=== PATIENT | male | born 1950 | race Caucasian/White ===

== ENCOUNTER 2018-09-18 13:18 | Emergency (ER) | payer MEDICARE, OTHER ==
[~2018-09-18] VITALS: Ht 167.6 cm; Wt 74.8 kg
[2018-09-18] MEDS ORDERED: TETANUS,DIPTH,PERTUSS P/F (BOOSTRIX) 0.5 ML VIAL IM ONE (13:30)
[2018-09-18] MEDS ORDERED: BACITRACIN OINTMENT 28 GM TUBE TOP SCH (13:45)
--- NOTE | 2018-09-18 13:47 | ED Integumentary General ---
General Chief Complaint: Bite-Animal/Human/Insect Stated Complaint: DOG BITE Source: patient Exam Limitations: no limitations History of Present Illness Date Seen by Provider: Sep 18, 2018 Time Seen by Provider: 13:35 Initial Comments The patient is a very pleasant 68-year-old male presents for evaluation of a dog bite to the right dorsal forearm. He states that a stray dog had been near his daughter's house over the last week and that they have been feeding it and that it had been chained up behind her house. He states that today he was trying to befriend the dog and he approached it, the dog started to growl at him, but he still tried to pet the dog and was then bitten. He reports that as far as anyone knows the dog has been behaving like her normal dog without any unusual behavior. He is unsure if he is up to date with his tetanus immunization status of this will be given today. I informed him that dogs can carry rabies and that since the dog is behaving normally and is currently chained up and can be observed over the next 10 days that we can forego the rabies vaccination and immunoglobulin at this time. I explained that if the dog continues to be asymptomatic that rabies treatment will not be necessary. The patient expresses verbal understanding of this plan. I also advised the patient to contact animal control for further recommendations. The police have been alerted and notified of the dog bite. The patient was wearing a longsleeved shirt at the time of the bite and states that there were no puncture wounds in the fabric and that his lacerations were caused by skin tearing. He denies any other injuries from the dog bite and specifically states that he did not hit his head or lose consciousness. The patient reports that his daughter is a registered nurse who cleaned the wound before coming to the emergency department today. Location Injury Occurred: at the patient's daughter's house Timing/Duration: just prior to arrival Severity: moderate Location: extremities Possible Cause: other (dog bite) Associated Symptoms: denies symptoms Allergies and Home Medications Allergies Uncoded Allergies: ANESTHESIA (Allergy, Unknown, 09/18/18) PENICILLIN (Allergy, Unknown, 09/18/18) FEVER Home Medications Doxycycline Hyclate 100 Mg Tablet, 100 MG PO BID Prescribed by: KADI VANN on 09/18/18 5915 Patient Home Medication List Home Medication List Reviewed: Yes Review of Systems Review of Systems Constitutional: no symptoms reported EENTM: no symptoms reported Respiratory: no symptoms reported Cardiovascular: no symptoms reported Gastrointestinal: no symptoms reported Genitourinary: no symptoms reported Musculoskeletal: no symptoms reported Skin: see HPI, other (dog bite to right forearm) Psychiatric/Neurological: No Symptoms Reported Endocrine: No Symptoms Reported Hematologic/Lymphatic: No Symptoms Reported All Other Systems Reviewed Negative Unless Noted: Yes Past Avijjdx-Etrvkd-Zptgvg Hx Past Med/Social Hx: Reviewed Nursing Past Med/Soc Hx, Reviewed and Corrections made Physical Exam Vital Signs Capillary Refill : General Appearance: WD/WN, no apparent distress HEENT: PERRL/EOMI, normal ENT inspection, pharynx normal Neck: non-tender, full range of motion Cardiovascular: regular rate, rhythm, no edema, no JVD Respiratory: chest non-tender, lungs clear, normal breath sounds, no respiratory distress, no accessory muscle use Gastrointestinal: non tender, soft, no pulsatile mass Extremities: no pedal edema, other (dog bite with 4 skin tear/lacerations to the right dorsal forearm bleeding, no damage to musculature, 3 of the wounds are very superficial, the fourth is approximately 2 cm in length with some very mild dehiscence) Neurologic/Psychiatric: beta tester II-XII nml as tested, no motor/sensory deficits, alert, normal mood/affect, oriented x 3 Skin: normal color, warm/dry Lymphatic: no adenopathy Progress/Results/Core Measures Results/Orders My Orders Orders - KADI VANN DO Dipht,Pertuss(Acell),Tet Adult (Boostrix (09/18/18 13:30) Bacitracin Ointment (Bacitracin Ointment (09/18/18 13:45) Wound Dressing-Ed (09/18/18 13:39) Nursing Communication (Order) (09/18/18 13:39) Progress Progress Note : Progress Note @1405 - Wound irrigated and cleaned by RN and Steri-Strips applied also by RN. The patient tolerated this very well. He'll go home with a prescription for doxycycline as he has an allergy to penicillin. Advised patient to follow up with his PCP in the next 2-3 days for wound check. Advised the patient to monitor the dog for 10 days for any abnormal behavior and to get the input from animal control. If the patient has any concerns at all he should return to the emergency department. His stable for discharge. Departure Impression Primary Impression: Dog bite Disposition: 01 HOME, SELF-CARE Condition: Stable Departure-Patient Inst. Referrals: NO,LOCAL PHYSICIAN (PCP/Family) Primary Care Physician Patient Instructions: Animal Bites (DC) Add. Discharge Instructions: Follow-up with her doctor in the next 2-3 days for wound check. Take the prescribed antibiotic as directed. Keep the wounds clean and dry. Return to the ER for new or worsening symptoms. Observe the dog bit that you for 10 days to monitor for abnormal behavior. Get the input from animal control if you have any questions. If the dog does exhibit signs or symptoms concerning for rabies you need to return for rabies medications. Scripts Doxycycline Hyclate (Doxycycline Hyclate) 100 Mg Tablet 100 MG PO BID for 7 Days, #20 TAB 0 Refills Prov: KADI VANN DO 09/18/18 AKDI VANN DO Sep 18, 2018 13:47
[2018-09-18] MEDS ORDERED: DOXY100T2 PO (13:56)
[2018-09-18 14:15] VITALS: BP 133/80
--- OUTSIDE RECORDS SUMMARY | 2018-09-18 17:12 | XMS REPORT | Continuity of Care Document ---
Author Author [facility] Organization [facility] Address [address] [place] [address] Phone Care Team Providers Care Patrol Officer Name Role Phone Jeannie Tomas DO PP Jeannie Tomas DO Unavailable Gail Rios Unavailable Unavailable Karen Littlejohn Unavailable Unavailable Jayde Olmedo Unavailable Unavailable Unavailable Problems Name Dates Details Atopic dermatitis (691.8, L20.9) Status: Active Cough (786.2, R05) Status: Active Encounter for administration of vaccine (V05.9, Z23) Status: Active Fever (780.60, R50.9) Status: Active Hip pain, chronic (719.45, M25.559) Status: Active Hypoglycemia Status: Active Need for pneumococcal vaccination (V03.82, Z23) Status: Active Persistent cough (786.2, R05) Status: Active Pneumonia (486, J18.9) Status: Active Pneumonia Comments: 1987 Status: Active Sleep disturbance (780.50, G47.9) Status: Active Medications Name Dates Details ASPIRIN BUFFERED (PO Tab) 1 daily (325 MG) Active CLONAZEPAM, 0.5MG (Oral Tablet) 1 (one) Tablet po qhs for 0 days Quantity: 30 {Tablet} Ordered:19-Jul-2015 Jeannie Tomas DO* Start 19-Jul-2015 Active LACTOBACILLUS (Oral Capsule) bid Active Mometasone Furoate 0.1 % External Ointment 1 (one) Ointment prn for 0 days * Quantity: 1 {Tube} Refills: 3 Ordered:18-Feb-2017 Jeannie Tomas DO* Start 18-Feb-2017 Active MULTIVITAMIN (PO Tab) 1 daily Active VITAMIN B-1, 250MG (Oral Tablet) 1BID (250 MG) Active VITAMIN C ER, 1000-100MG (Oral Tablet Extended Release) 2 daily (1000-100 MG) Active VITAMIN E NATURAL, 1000UNIT (Oral Capsule) daily (1000 UNIT) Active ALBUTEROL SULFATE, 0.63MG/3ML (Inhalation Nebulization Solution) 2 puffs every 6 hours (0.63 MG/3ML) Inactive ASPIRIN CHILD, 81MG (Oral Tablet Chewable) 1 daily (81 MG) Inactive BENADRYL ALLERGY, 25MG (Oral Capsule) 1 as needed (25 MG) Inactive Comments: Medication taken as needed. FISH OIL, 435MG (Oral Capsule) 1 daily (435 MG) Inactive FLOVENT HFA, 110MCG/ACT (Inhalation Aerosol) 2 puffs bid (110 MCG/ACT) Inactive HYDROCHLOROTHIAZIDE, 25MG (Oral Tablet) 1 daily (25 MG) Inactive IBUPROFEN PMR, 200MG (PO Tab) 3 prn (200 MG) Inactive LEVAQUIN, 500MG (Oral Tablet) 1 daily (500 MG) Inactive MOMETASONE FUROATE, 0.1% (External Ointment) Apply to rash Ointment Ointment bid for 0 days * Quantity: 45 {Gram} Refills: 3 Ordered:19-Jul-2015 Gail Rios * Start End 19-Jul-2015 Inactive MOMETASONE FUROATE, 0.1% (External Ointment) Apply to rash Ointment Ointment bid for 0 days * Quantity: 45 {Gram} Refills: 3 Ordered:19-Jul-2015 Gail Rios * Start End 19-Jul-2015 Inactive POTASSIUM GLUCONATE, 595MG (Oral Tablet) 1 BID (595 MG) Inactive PREDNISONE, 20MG (Oral Tablet) 2 x 3d, 1 x 4d Tablet po qd with food for 0 days * Quantity: 10 {Tablet} Refills: 0 Ordered: Gail Rios * Start 29-Jul-2014 End Inactive TYLENOL EXTRA STRENGTH, 500MG (Oral Tablet) prn (500 MG) Inactive VITAMIN E NATURAL, 1000UNIT (Oral Capsule) 1 daily (1000 UNIT) Inactive Allergies and Adverse Reactions Name Dates Details Penicillins (Allergy) Status: Active Comments: Headache and very sleepy Poison Judy (Allergy) Status: Active Past Medical History No Significant Medical History. Procedures Procedure Dates Details INTRAMUSCULAR INJECTION OF VACCINE (15537) Ordered:28-Jan-2017 INTRAMUSCULAR ADMINISTRATION OF HIGH DOSE SPLIT VIRUS PRESERVATIVE FREE INFLUENZA VACCINE ([id number]) Completed:28-Jan-2017 IMMUNIZ ADMNIN, 1 VAC, SNGL/COMBO (57471) Ordered:19-Feb-2016 FLU VAC * QUADRIVALENT , 3-64 YRS INTRAMUSC (73160) Completed:19-Feb-2016 IMMUNIZ ADMNIN, 1 VAC, SNGL/COMBO (73099) Ordered:14-Feb-2015 FLU VAC * QUADRIVALENT , 3-64 YRS INTRAMUSC (06148) Completed:14-Feb-2015 ADMINISTRATION OF PNEUMOCOCCAL VACCINE (G0009) Ordered:28-Dec-2014 PNEUMOCOCCAL VACCINE (34241) Completed:28-Dec-2014 CHEST X-RAY, TWO VIEWS (11708) Completed: CHEST X-RAY, TWO VIEWS (75023) Completed: CHEST X-RAY, TWO VIEWS (59570) Completed:29-Jul-2014 X-RAY EXAM OF HIP, COMPLETE (2 View) ([id number]) Completed:29-Jul-2014 Flu Vaccine Completed:19-Feb-2016 Flu Vaccine Completed:28-Jan-2017 Hernia Repair Completed:1981 Comments: Right. Pneumovax Completed:28-Dec-2014 Tonsillectomy Comments: 4th grade Immunization Name Dates Details Influenza, preserv. free, enhanced immunogncty, IM Lot #: [id number] Administered on:28-Jan-2017 Comments: Site: Deltoid (Left) Influenza, preservative free (3 years and up) Lot #: [id number] Administered on:14-Feb-2015 Comments: Site: Deltoid (Left) Influenza, preservative free (3 years and up) Lot #: [id number] Administered on:19-Feb-2016 Comments: Site: Deltoid (Left) Pneumococcal (2 years and up) Lot #: [id number] Administered on:28-Dec-2014 Comments: Site: Deltoid (Left) Family History Name Dates Details Alzheimer's disease Comments: Father. Status: Active Arteriosclerotic Cardiovascular Disease Comments: Father. First Degree Relatives. Has Artificial Heart Valve. still living Status: Active Hypertension Comments: Mother. First Degree Relatives. Status: Active Social History Name Dates Details No Drug Use Status: Active Non Drinker/No Alcohol Use Status: Active Tobacco use: Never smoker. Status: Active Vital Signs Date Test Result Details 19-Jul-2015 15:20 Temperature 98.7 f Comments: Method: Temporal Pulse 80 /min Comments: Pattern: Regular BP Systolic 138 mm[Hg] Comments: Patient Position: Sitting; Cuff Location: Left Arm; Cuff Size: Standard BP Diastolic 90 mm[Hg] Comments: Patient Position: Sitting; Cuff Location: Left Arm; Cuff Size: Standard Weight 169 lb Height 66 in Body Mass Index Calculated 27.28 kg/m2 Body Surface Area Calculated 1.86 m2 14:12 Temperature 99.1 f Comments: Method: Temporal Pulse 88 /min Comments: Pattern: Regular Respiration Rate 18 /min Comments: Pattern: Unlabored BP Systolic 136 mm[Hg] Comments: Patient Position: Sitting; Cuff Location: Left Arm; Cuff Size: Standard BP Diastolic 82 mm[Hg] Comments: Patient Position: Sitting; Cuff Location: Left Arm; Cuff Size: Standard Weight 167 lb Height 66 in Body Mass Index Calculated 26.95 kg/m2 Body Surface Area Calculated 1.85 m2 08:40 Temperature 101.4 f Comments: Method: Oral Pulse 100 /min Comments: Pattern: Regular BP Systolic 126 mm[Hg] Comments: Patient Position: Sitting; Cuff Location: Left Arm; Cuff Size: Standard BP Diastolic 86 mm[Hg] Comments: Patient Position: Sitting; Cuff Location: Left Arm; Cuff Size: Standard Weight 166 lb Height 66 in Body Mass Index Calculated 26.79 kg/m2 Body Surface Area Calculated 1.85 m2 29-Jul-2014 16:26 Temperature 98.7 f Comments: Method: Temporal Pulse 78 /min Comments: Pattern: Regular Respiration Rate 18 /min Comments: Pattern: Unlabored BP Systolic 120 mm[Hg] Comments: Patient Position: Sitting; Cuff Location: Left Arm; Cuff Size: Standard BP Diastolic 82 mm[Hg] Comments: Patient Position: Sitting; Cuff Location: Left Arm; Cuff Size: Standard Weight 170 lb Height 66 in Body Mass Index Calculated 27.44 kg/m2 Body Surface Area Calculated 1.87 m2 15:11 Temperature 98.3 f Comments: Method: Temporal Pulse 80 /min Comments: Pattern: Regular BP Systolic 132 mm[Hg] Comments: Patient Position: Sitting; Cuff Location: Left Arm; Cuff Size: Standard BP Diastolic 88 mm[Hg] Comments: Patient Position: Sitting; Cuff Location: Left Arm; Cuff Size: Standard Weight 163 lb Height 66 in Body Mass Index Calculated 26.31 kg/m2 Body Surface Area Calculated 1.83 m2 Results Date Description Value Details 09:13 Draw Charge[i] Draw Drawn (Normal) 09:13 [facility] ([id number]) Comments: Items in this order include: CBC, Comprehensive Metabolic Panel, Draw Charge[i] ALTI 26 U/L (Normal) Range: 12-78 AST 17 [iU]/L (Normal) Range: 10-42 ALP 66 U/L (Normal) Range: 50-136 a/g ratio 0.88 (Abnormal) Range: 1.00-2.10 globulin 4.3 g/dL (Abnormal) Range: 2.2-3.9 ALB 3.8 g/dL (Normal) Range: 3.4-5.0 TP 8.1 g/dL (Normal) Range: 6.0-8.3 T.MARINA 0.62 mg/dL (Normal) Range: 0.20-1.00 GLU 125 mg/dL (Abnormal) Range: 70-110 CA 9.2 mg/dL (Normal) Range: 8.4-10.2 eGFR 54.3 mL/min/1.73m2 (Abnormal) Range: >60.0 CREAT 1.4 mg/dL (Abnormal) Range: 0.6-1.3 OSMO 282 (Normal) Range: 275-295 BUN 15 mg/dL (Normal) Range: 7-18 AGAP 17.20 mmol/L (Normal) Range: 10.00-20.00 CO2 26.3 mmol/L (Normal) Range: 21.0-32.0 CL 101 mmol/L (Normal) Range: 98-107 K 4.5 mmol/L (Normal) Range: 3.5-5.0 NA 140 mmol/L (Normal) Range: 135-145 09:13 CBC FEMALE- ORDER THIS ONE! ([id number]) manual diff Not Indicated (Normal) mpv 9.30 fL (Normal) Range: 0.00-99.90 PLT 202.0 10*3/uL (Normal) Range: 150.0-450.0 RDW 14.6 % (Abnormal) Range: 11.5-14.5 MCHC 33.4 g/dL (Normal) Range: 31.0-36.0 MCH 30.4 pg (Normal) Range: 27.0-31.2 MCV 90.9 fL (Normal) Range: 80.0-97.0 HCT 45.8 % (Normal) Range: 39.0-54.0 HGB 15.30 g/dL (Normal) Range: 13.00-17.00 RBC 5.04 M/uL (Normal) Range: 4.60-6.20 Baso% 0.200 % (Normal) Range: 0.000-1.000 eos% 0.10 % (Normal) Range: 0.00-3.00 mono% 12.00 % (Abnormal) Range: 0.00-9.00 LYM% 7.70 % (Abnormal) Range: 20.00-40.00 bri% 80.00 % (Abnormal) Range: 55.00-75.00 Baso 0.020 10*3/uL (Normal) Range: 0.000-0.100 eos 0.010 10*3/uL (Normal) Range: 0.000-4.000 mono 1.40 10*3/uL (Abnormal) Range: 0.00-0.70 LYMPHS 0.90 10*3/uL (Normal) Range: 0.90-4.20 bri 9.33 10*3/uL (Abnormal) Range: 2.50-7.80 wbc 11.66 10*3/uL (Abnormal) Range: 4.50-10.50 Treatment Plan * STATFLU ([id number]); Ordered: 06/04/2017 Advance Directives Encounters Lab entry only - Cough (786.2 | R05) [facility] On 04-Jun-2017 16:17 to 16:18 Medication Entry - Atopic dermatitis (691.8 | L20.9) [facility] On 18-Feb-2017 10:25 to 10:28 Nurse Visit - Encounter for administration of vaccine (V05.9 | Z23) [facility] On 28-Jan-2017 14:24 to 15:09 Nurse Visit - Encounter for administration of vaccine (V05.9 | Z23) [facility] On 19-Feb-2016 15:48 to 17:03 Office Visit - Sleep disturbance (780.50 | G47.9) Encounter Reason: Sleeping difficulty - Note for "Sleeping difficulty": Pt states can get to sleep but is having difficulty staying alseep. Wakes 2-3am regularly, and then has much difficulty getting back to sleep. This has been occuring for some time but [facility] 19-[facility]-2015 to 14-Aug-2015 Nurse Visit - Flu vaccine need (V04.81 | Z23) [facility] On 14-Feb-2015 17:17 to 17:20 Nurse Visit - Need for pneumococcal vaccination (V03.82 | Z23) [facility] On 28-Dec-2014 16:36 to 16:56 Office Visit - Pneumonia (486 | J18.9) Encounter Reason: Transition into care - The patient is transitioning into care from a hospital and a summary of care was reviewed . Note for "Transition into care": F/u for hospitolization for pnewmonia. Pt c/o right ear discomfort and states Flovent is causing some hoarseness. Also c/o fatigue.[facility] to 13-Nov-2014 Admission Note - Fever (780.60 | R50.9), Cough (786.2 | R05), Pneumonia (486 | J18.9) Encounter Reason: Fever - Note for "Fever": Chills, fever, chest congestion, cough, sore throat, and a little SOB since Sat.. Nauseated this [facility] to 13-Nov-2014 Office Visit - Hip pain, chronic (719.45 | M25.559), Persistent cough (786.2 | R05) Encounter Reason: Hip pain - Note for "Hip pain": Chronic intermittent right hip pain. Onset was several years ago. @ times upon arising is difficult to put weight on it. Twisting and turning movements aggravates the pain. Pain does not radiate down his leg. It started at least as far back as October 2013. It is persistent with intermittent worsening. It is worse with abduction and rotation. It is worse with riding in the car, described as aching, and painful when he gets out of the car to stand up. He stopped carrying his billfold in his back pockets to see if that would help.The pain will improve after he walks for a time it does feel better. It is worse with rest as it gets stiff. He has not had any recent injury. In 1999 he did slip on some ice and in the past he has jumped off a dock. He used to run and be active but not so much anymore. [facility] 29-Jul-2014 to 23-Aug-2014 Office Visit - Atopic dermatitis (691.8 | L20.9), Hip pain, chronic (719.45 | M25.559) Encounter Reason: Rash - Symptoms include skin bumps, crusting, draining, skin redness, skin scaling and skin swelling. The skin rash is located on the left leg, left foot, right leg and right foot. Onset was 3 week(s) ago.[facility] to Insurance * Shlomo Santoyo ; holli guarantor * Medicare WPS * [employer]
--- OUTSIDE RECORDS SUMMARY | 2018-09-18 17:12 | XMS REPORT | Continuity of Care Document ---
Author Author [employer] Organization Unknown Address Unknown Phone Unavailable Care Team Providers Care Belt Measurer Name Role Phone Jeannie Tomas DO PP Jeannie Tomas DO Unavailable Bere Henriquez Unavailable Unavailable Gail Rios Unavailable Unavailable Unavailable Problems Name Dates Details Atopic dermatitis (L20.9, 691.8) Status: Active Bronchitis, acute (J20.9, 466.0) Status: Active Carpal tunnel syndrome on right (G56.01, 354.0) Comments: He is scheduled to have the right hand done next week and he would like to postpone this. I agree that he needs to be fully recovered from the head injury. I notified Carline in surgery and she will take care of rescheduling and letting Dr. Farley know. I would suggest he not have any sedation, if possible, and just get his arm blocked to avoid issues next time. Status: Active Closed head injury with concussion, with loss of consciousness of 30 minutes or less, sequela (S06.0X1S, 907.0) Comments: He was given concussion information and seems to be recovering as expected. Status: Active Encounter for administration of vaccine (Z23, V05.9) Status: Active GERD with esophagitis (K21.0, 530.11) Status: Active Health education (Z71.9, V65.40) Status: Active Hip pain, chronic (M25.559, 719.45) Comments: Will get an xray at this time. Status: Active Hyperglycemia (R73.9, 790.29) Status: Active Hypertension (I10, 401.9) Status: Active MEDICARE need for immunization against influenza (Renamed from Need for immunization against influenza) (Z23, V04.81) Status: Active Myofascial pain on right side (M79.18, 729.1) Status: Active Need for pneumococcal vaccination (Z23, V03.82) Status: Active Positive colorectal cancer screening using Cologuard test (R19.5, 787.7) Comments: He did have a hard time waking from anesthesia after his carpal tunnel surgery so will watch closely before his is discharged this time. Status: Active Screen for colon cancer (Z12.11, V76.51) Comments: order Cologard for cancer screening. He has never had a colonoscopy. Status: Active Screening for prostate cancer (Z12.5, V76.44) Status: Active Sleep disturbance (G47.9, 780.50) Status: Active Trigger point of right shoulder region (M25.511, 719.41) Status: Active Medications Name Dates Details Blood Glucose Monitor System w/Device Kit 1 (one) Kit Kit two times daily for 30 days Quantity: 1 Kit Ordered: 02-Mar-2018 Gail Rios * Start : 02-Mar-2018 Active Fish Oil 1000 MG Oral Capsule 1 daily (1000 MG) Active Losartan Potassium 50 MG Oral Tablet 1 (one) Tablet Tablet po qhs for 90 days * Quantity: 90 {Tablet} Refills: 4 Ordered: 01-Jun-2018 Bere Henriquez * Start : 01-Jun-2018 Active Comments: new dosage Losartan Potassium-HCTZ 100-25 MG Oral Tablet 1 (one) Tablet po qd for 0 days * Quantity: 30 {Tablet} Refills: 12 Ordered: 05-Aug-2018 Jeannie Tomas DO Start : 05-Aug-2018 Active Mometasone Furoate 0.1 % External Ointment 1 (one) Ointment prn for 0 days * Quantity: 1 {Tube} Refills: 3 Ordered: 18-Feb-2017 Jeannie Tomas DO * Start : 18-Feb-2017 Active MULTIVITAMIN (PO Tab) 1 daily Active ProAir HFA 108 (90 Base) MCG/ACT Inhalation Aerosol Solution 2 puffs Aerosol Soln Aerosol Soln q 4 hours prn cough or wheeze for 0 days * Quantity: 1 {Inhaler} Refills: 1 Ordered: 05-Jun-2017 Gail Rios * Start : 05-Jun-2017 Active Probiotic 250 MG Oral Capsule 1 daily (250 MG) Active Tums 500 1250 MG Oral Tablet Chewable 1 prn hs (1250 MG) Active Tylenol PM Extra Strength 500-25 MG Oral Tablet @ hs (500-25 MG) Active VITAMIN C ER, 1000-100MG (Oral Tablet Extended Release) 2 daily (1000-100 MG) Active VITAMIN E NATURAL, 1000UNIT (Oral Capsule) daily (1000 UNIT) Active ALBUTEROL SULFATE, 0.63MG/3ML (Inhalation Nebulization Solution) 2 puffs every 6 hours (0.63 MG/3ML) Inactive ASPIRIN BUFFERED (PO Tab) 1 daily (325 MG) Inactive ASPIRIN CHILD, 81MG (Oral Tablet Chewable) 1 daily (81 MG) Inactive BENADRYL ALLERGY, 25MG (Oral Capsule) 1 as needed (25 MG) Inactive Comments: Medication taken as needed. Carafate 1 GM Oral Tablet 1 (one) Tablet po bid for 10 days * Quantity: 20 {Tablet} Refills: 0 Ordered: 20-Oct-2017 Jeannie Tomas DO * Start : 20-Oct-2017 End : 30-Oct-2017 Inactive ClonazePAM 0.5 MG Oral Tablet 1 (one) Tablet Tablet po qhs for 0 days * Quantity: 30 {Tablet} Refills: 5 Ordered: 20-Oct-2017 Gail Rios * Start : 19-Jul-2015 End : 20-Oct-2017 Inactive FISH OIL, 435MG (Oral Capsule) 1 daily (435 MG) Inactive FLOVENT HFA, 110MCG/ACT (Inhalation Aerosol) 2 puffs bid (110 MCG/ACT) Inactive HYDROCHLOROTHIAZIDE, 25MG (Oral Tablet) 1 daily (25 MG) Inactive IBUPROFEN PMR, 200MG (PO Tab) 3 prn (200 MG) Inactive LACTOBACILLUS (Oral Capsule) bid Inactive LEVAQUIN, 500MG (Oral Tablet) 1 daily (500 MG) Inactive Losartan Potassium 25 MG Oral Tablet 1 (one) Tablet Tablet po qd for 0 days * Quantity: 30 {Tablet} Refills: 12 Ordered: 09-Jul-2018 Bere Henriquez * Start : 16-Feb-2018 End : 09-Jul-2018 Inactive Medrol 4 MG Oral Tablet Therapy Pack Use as directed mg per instructions in pack with food for 0 days * Quantity: 1 {Package} Refills: 0 Ordered: 01-Jun-2018 Bere Henriquez * Start : 04-May-2018 End : 01-Jun-2018 Inactive MetFORMIN HCl ER (OSM) 1000 MG Oral Tablet Extended Release 24 Hour 1 (one) Tablet Tablet daily for 30 days * Quantity: 30 {Tablet} Refills: 12 Ordered: 01-Jun-2018 Bere Henriquez * Start : 02-Mar-2018 End : 01-Jun-2018 Inactive MOMETASONE FUROATE, 0.1% (External Ointment) Apply to rash Ointment Ointment bid for 0 days * Quantity: 45 {Gram} Refills: 3 Ordered: 19-Jul-2015 Gail Rios * Start : 29-Oct-2013 End : 19-Jul-2015 Inactive MOMETASONE FUROATE, 0.1% (External Ointment) Apply to rash Ointment Ointment bid for 0 days * Quantity: 45 {Gram} Refills: 3 Ordered: 19-Jul-2015 Gail Rios Michael Start : 29-Oct-2013 End : 19-Jul-2015 Inactive Omeprazole 40 MG Oral Capsule Delayed Release 1 (one) Capsule po qd for 30 days * Quantity: 30 {Capsule} Refills: 12 Ordered: 16-Feb-2018 Rios, Mary Mcihael Start : 20-Oct-2017 End : 16-Feb-2018 Inactive Potassium 99 MG Oral Tablet 1 bid (99 MG) Inactive POTASSIUM GLUCONATE, 595MG (Oral Tablet) 1 BID (595 MG) Inactive PredniSONE 10 MG Oral Tablet 3 po x 3d, then 2po x 3d Tablet then 1 po qd for 0 days * Quantity: 18 {Tablet} Refills: 0 Ordered: 20-Oct-2017 Rios, Mary Michael Start : 24-Jun-2017 End : 20-Oct-2017 Inactive Comments: Take with food. May take first dose today then take in the mornings. PREDNISONE, 20MG (Oral Tablet) 2 x 3d, 1 x 4d Tablet po qd with food for 0 days * Quantity: 10 {Tablet} Refills: 0 Ordered: 25-Oct-2014 Gail Rios Start : 29-Jul-2014 End : 25-Oct-2014 Inactive Tessalon Perles 100 MG Oral Capsule 1 (one) Capsule po tid prn cough for 0 days * Quantity: 30 {Capsule} Refills: 0 Ordered: 20-Oct-2017 Gail Rios Start : 24-Jun-2017 End : 20-Oct-2017 Inactive TYLENOL EXTRA STRENGTH, 500MG (Oral Tablet) prn (500 MG) Inactive VITAMIN B-1, 250MG (Oral Tablet) 1BID (250 MG) Inactive VITAMIN E NATURAL, 1000UNIT (Oral Capsule) 1 daily (1000 UNIT) Inactive Zithromax Z-Jefferson 250 MG Oral Tablet 2 d1, 1 d 2-5 Tablet po qd for 0 days * Quantity: 1 {Package} Refills: 0 Ordered: 01-Jun-2018 Bere Henriquez Start : 04-May-2018 End : 01-Jun-2018 Inactive Allergies and Adverse Reactions Name Dates Details Penicillins (Allergy) Status: Active Comments: Headache and very sleepy Poison Judy (Allergy) Status: Active Past Medical History Name Dates Details Cough (R05, 786.2) Status: Inactive as of 05-Jun-2017 Fever (R50.9, 780.60) Status: Inactive as of 05-Jun-2017 Hypoglycemia Status: Inactive as of 24-Dec-2017 Persistent cough (R05, 786.2) Status: Inactive as of 05-Jun-2017 Pneumonia (J18.9, 486) Comments: He is much improved at this point and he is able to resume his usual activities. Status: Inactive as of 05-Jun-2017 Pneumonia Comments: 1987 Status: Inactive as of 24-Dec-2017 Procedures Procedure Dates Details STOOL DNA-BASED COLORECTAL CANCER SCREENING (04724) Date: 01-Jun-2018 EKG, COMPLETE (24942) Date: 01-Jun-2018 Completed 01-Jun-2018 TTE W/DOPPLER, TC(73609) Date: 01-Jun-2018 Completed 01-Jun-2018 TTE W/DOPPLER, COMPLETE (75596) Date: 01-Jun-2018 Completed 01-Jun-2018 TRIGGER POINT INJECTION OF 1 OR 2 MUSCLES (50150) Date: 01-Jun-2018 Follow up in 6 months Date: 23-Apr-2018 HIGH DOSE INFLUENZA QUADRIVALENT VAC: FLU VACC (41921) Date: 16-Jan-2018 Completed 16-Jan-2018 ADMINISTRATION OF INFLUENZA VIRUS VACCINE (G0008) Date: 16-Jan-2018 Concussion *: head injury Date: 25-Dec-2017 How to access health information online Date: 11-Nov-2017 Completed 11-Nov-2017 CHEST X-RAY, TWO VIEWS (06319) Date: 05-Jun-2017 Completed 05-Jun-2017 INTRAMUSCULAR INJECTION OF VACCINE (31516) Date: 28-Jan-2017 INTRAMUSCULAR ADMINISTRATION OF HIGH DOSE SPLIT VIRUS PRESERVATIVE FREE INFLUENZA VACCINE (29013) Date: 28-Jan-2017 Completed 28-Jan-2017 IMMUNIZ ADMNIN, 1 VAC, SNGL/COMBO (11026) Date: 19-Feb-2016 FLU VAC * QUADRIVALENT , 3-64 YRS INTRAMUSC (48497) Date: 19-Feb-2016 Completed 19-Feb-2016 IMMUNIZ ADMNIN, 1 VAC, SNGL/COMBO (72536) Date: 14-Feb-2015 FLU VAC * QUADRIVALENT , 3-64 YRS INTRAMUSC (63087) Date: 14-Feb-2015 Completed 14-Feb-2015 ADMINISTRATION OF PNEUMOCOCCAL VACCINE (G0009) Date: 28-Dec-2014 PNEUMOCOCCAL VACCINE (58280) Date: 28-Dec-2014 Completed 28-Dec-2014 CHEST X-RAY, TWO VIEWS (38472) Date: 01-Nov-2014 Completed 01-Nov-2014 CHEST X-RAY, TWO VIEWS (78573) Date: 25-Oct-2014 Completed 25-Oct-2014 CHEST X-RAY, TWO VIEWS (76073) Date: 29-Jul-2014 Completed 29-Jul-2014 X-RAY EXAM OF HIP, COMPLETE (2 View) (08845) Date: 29-Jul-2014 Completed 29-Jul-2014 Carpal Tunnel Surgery - Left Completed 19-Dec-2017 [place] [employer] screening Completed 09-Jun-2018 Colonoscopy, Screening Completed 16-Jul-2018 Echocardiogram Completed 01-Jun-2018 EKG Completed 01-Jun-2018 Flu Vaccine Completed 16-Jan-2018 Hernia Repair Completed 1982 Comments: Right. Pneumovax Completed 28-Dec-2014 PSA Completed 01-Jun-2018 Comments: (2.27) Tonsillectomy Completed Comments: 4th grade Immunization Name Dates Details Influenza, preserv. free, enhanced immunogncty, IM Lot #: [id number] on: 28-Jan-2017 Comments: Site: Deltoid (Left)VIS Given: * Influenza - Inactivated (11/18/14) Influenza, preserv. free, enhanced immunogncty, IM Lot #: [id number] on: 16-Jan-2018 Comments: Site: Left DeltoidVIS Given: * Influenza - Inactivated (11/18/14) Influenza, preservative free (3 years and up) Lot #: [id number] on: 14-Feb-2015 Comments: Site: Deltoid (Left) Influenza, preservative free (3 years and up) Lot #: [id number] on: 19-Feb-2016 Comments: Site: Deltoid (Left) Pneumococcal (2 yrs and up) [id number] Lot #: [id number] on: 28-Dec-2014 Comments: Site: Deltoid (Left) Family History Name Dates Details Alzheimer's disease Comments: Father. Status: Active Arteriosclerotic Cardiovascular Disease Comments: Father. First Degree Relatives. Has Artificial Heart Valve. still living Status: Active Hypertension Comments: Mother. First Degree Relatives. Status: Active Social History Name Dates Details Marital status: . 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 Status: Active Vital Signs Date Test Result Details [id number] Temperature 98.3 f Comments: Method: Temporal Pulse 89 /min Comments: Pattern: Regular BP Systolic 124 mm[Hg] Comments: Patient Position: Sitting; Cuff Location: Left Arm; Cuff Size: Standard BP Diastolic 88 mm[Hg] Comments: Patient Position: Sitting; Cuff Location: Left Arm; Cuff Size: Standard Weight 164 lb Height 66 in Body Mass Index Calculated 26.47 kg/m2 Body Surface Area Calculated 1.84 m2 [id number]-Lbw-[id number]:44 Temperature 97.5 f Comments: Method: Temporal Pulse 77 /min Comments: Pattern: Regular BP Systolic 136 mm[Hg] Comments: Patient Position: Sitting; Cuff Location: Left Arm; Cuff Size: Standard BP Diastolic 72 mm[Hg] Comments: Patient Position: Sitting; Cuff Location: Left Arm; Cuff Size: Standard Weight 165 lb Height 66 in Body Mass Index Calculated 26.63 kg/m2 Body Surface Area Calculated 1.84 m2 [id number] Temperature 97.4 f Comments: Method: Temporal Pulse 80 /min Comments: Pattern: Regular Respiration Rate 18 /min Comments: Pattern: Unlabored BP Systolic 118 mm[Hg] Comments: Patient Position: Sitting; Cuff Location: Left Arm; Cuff Size: Standard BP Diastolic 70 mm[Hg] Comments: Patient Position: Sitting; Cuff Location: Left Arm; Cuff Size: Standard Weight 165 lb Height 66 in Body Mass Index Calculated 26.63 kg/m2 Body Surface Area Calculated 1.84 m2 :52 Temperature 99.1 f Comments: Method: Temporal Pulse 80 /min Comments: Pattern: Regular Respiration Rate 18 /min Comments: Pattern: Unlabored BP Systolic 130 mm[Hg] Comments: Patient Position: Sitting; Cuff Location: Left Arm; Cuff Size: Standard BP Diastolic 84 mm[Hg] Comments: Patient Position: Sitting; Cuff Location: Left Arm; Cuff Size: Standard Weight 171 lb Height 66 in Body Mass Index Calculated 27.6 kg/m2 Body Surface Area Calculated 1.87 m2 :34 Temperature 98.7 f Comments: Method: Temporal Pulse 74 /min Comments: Pattern: Regular Respiration Rate 18 /min Comments: Pattern: Unlabored BP Systolic 142 mm[Hg] Comments: Patient Position: Sitting; Cuff Location: Left Arm; Cuff Size: Standard BP Diastolic 74 mm[Hg] Comments: Patient Position: Sitting; Cuff Location: Left Arm; Cuff Size: Standard Weight 168 lb Height 66 in Body Mass Index Calculated 27.12 kg/m2 Body Surface Area Calculated 1.86 m2 :51 Temperature 98.9 f Comments: Method: Temporal Pulse 70 /min Comments: Pattern: Regular Respiration Rate 18 /min Comments: Pattern: Unlabored BP Systolic 130 mm[Hg] Comments: Patient Position: Sitting; Cuff Location: Left Arm; Cuff Size: Standard BP Diastolic 78 mm[Hg] Comments: Patient Position: Sitting; Cuff Location: Left Arm; Cuff Size: Standard Weight 169 lb Height 66 in Body Mass Index Calculated 27.28 kg/m2 Body Surface Area Calculated 1.86 m2 :27 Temperature 98.3 f Comments: Method: Temporal Pulse 76 /min Comments: Pattern: Regular Respiration Rate 18 /min Comments: Pattern: Unlabored BP Systolic 128 mm[Hg] Comments: Patient Position: Sitting; Cuff Location: Left Arm; Cuff Size: Standard BP Diastolic 80 mm[Hg] Comments: Patient Position: Sitting; Cuff Location: Left Arm; Cuff Size: Standard Weight 173 lb Height 66 in Body Mass Index Calculated 27.92 kg/m2 Body Surface Area Calculated 1.88 m2 :44 Temperature 98.6 f Pulse 82 /min Comments: Pattern: Regular BP Systolic 148 mm[Hg] Comments: Patient Position: Sitting; Cuff Location: Left Arm; Cuff Size: Standard BP Diastolic 108 mm[Hg] Comments: Patient Position: Sitting; Cuff Location: Left Arm; Cuff Size: Standard Weight 175 lb Height 66 in Body Mass Index Calculated 28.25 kg/m2 Body Surface Area Calculated 1.89 m2 :20 Temperature 98.7 f Comments: Method: Temporal Pulse 80 /min Comments: Pattern: Regular BP Systolic 138 mm[Hg] Comments: Patient Position: Sitting; Cuff Location: Left Arm; Cuff Size: Standard BP Diastolic 90 mm[Hg] Comments: Patient Position: Sitting; Cuff Location: Left Arm; Cuff Size: Standard Weight 169 lb Height 66 in Body Mass Index Calculated 27.28 kg/m2 Body Surface Area Calculated 1.86 m2 :12 Temperature 99.1 f Comments: Method: Temporal Pulse [...] kg/m2 Body Surface Area Calculated 1.85 m2 :40 Temperature 101.4 f Comments: Method: Oral Pulse 100 /min Comments: Pattern: Regular BP Systolic 126 mm[Hg] Comments: Patient Position: Sitting; Cuff Location: Left Arm; Cuff Size: Standard BP Diastolic 86 mm[Hg] Comments: Patient Position: Sitting; Cuff Location: Left Arm; Cuff Size: Standard Weight 166 lb Height 66 in Body Mass Index Calculated 26.79 kg/m2 Body Surface Area Calculated 1.85 m2 :26 Temperature 98.7 f Comments: Method: Temporal Pulse [...] kg/m2 Body Surface Area Calculated 1.87 m2 [id number] Temperature 98.3 f Comments: Method: Temporal Pulse 80 /min Comments: Pattern: Regular BP Systolic 132 mm[Hg] Comments: Patient Position: Sitting; Cuff Location: Left Arm; Cuff Size: Standard BP Diastolic 88 mm[Hg] Comments: Patient Position: Sitting; Cuff Location: Left Arm; Cuff Size: Standard Weight 163 lb Height 66 in Body Mass Index Calculated 26.31 kg/m2 Body Surface Area Calculated 1.83 m2 Results Date Value Details 01-Jun-2018 RISK ASSESSMENT FOR FALL INDICATED (3288F) Result: Score: (Reference Range: 0-24=Low Risk, 25-44=Medium Risk, 45+=High Risk): 0; History of falling: immediate or within 3 months?: No (0); Is there a Secondary Diagnosis?: No (0); Any use of ambulatory aids?: Bed rest/nurse assist (0); Does patient have a IV/Heparin lock?: No (0); How is patient's gait/transferring?: Normal/bed rest/immobile (0); How is patient's mental status?: Oriented to own ability (0) 01-Jun-2018 ANNUAL DEPRESSION SCREENING (G0444) Result: Score: 0 [Over the past 2 weeks, how often have you been bothered by any of the following problems?] Little interest or pleasure in doing things: 0-Not at all ; Feeling down, depressed, or hopeless: 0-Not at all 05-Jun-2017 ANNUAL DEPRESSION SCREENING (G0444) Result: Score: 0 [Over the past 2 weeks, how often have you been bothered by any of the following problems?] Little interest or pleasure in doing things: 0-Not at all ; Feeling down, depressed, or hopeless: 0-Not at all 05-Jun-2017 RISK ASSESSMENT FOR FALL INDICATED (3288F) Result: Score: (Reference Range: 0-24=Low Risk, 25-44=Medium Risk, 45+=High Risk): 0; History of falling: immediate or within 3 months?: No (0); Is there a Secondary Diagnosis?: No (0); Any use of ambulatory aids?: Bed rest/nurse assist (0); Does patient have a IV/Heparin lock?: No (0); How is patient's gait/transferring?: Normal/bed rest/immobile (0); How is patient's mental status?: Oriented to own ability (0) Date Description Value Details :43 PSA (Medicare) (G0103) PSA SCREEN 2.27 ng/mL (Normal) Range: 0.00-4.00 :43 HEMOGLOBIN GLYCLATED (HGB A1C) (37886) A1C 5.6 % (Normal) Range: 4.3-6.0 :43 LIPID PANEL (94183) ahdl risk factor 3.80 (Abnormal) Range: 4.00-6.70 LDL 128.0 mg/dL (Normal) Range: 1.0-129.0 Comments: Desirable range <100 mg/dL for patients with CHD or Diabetes and <70 mg/dL for diabetic patients with known heart disease. CHOL 232 mg/dL (Abnormal) Range: 0-200 HDL 61 mg/dL (Abnormal) Range: 40-60 TRIG 215 mg/dL (Abnormal) Range: 30-150 :43 CMP (02150) eGFR 68.1 {mL/min/1.73m2} (Normal) Comments: Stages of Chronic Kidney DiseaseStage: GFR Rate: Description: 1 90+ Normal Renal Function 2 60-89 Mildly Reduced Renal Function 3 45-59 Moderate Decrease in Renal Function 3b 30-44 Moderate Decrease in Renal Function 4 15-29 Severely Reduced Renal Function 5 <15 Very Severe Renal Failure ALTI 38 U/L (Normal) Range: 12-78 AST 27 [iU]/L (Normal) Range: 15-37 a/g ratio 1.26 (Normal) Range: 1.00-2.10 ALP 73 U/L (Normal) Range: 50-136 ALB 3.9 g/dL (Normal) Range: 3.4-5.0 globulin 3.1 g/dL (Normal) Range: 2.4-5.0 T.MARINA 0.40 mg/dL (Normal) Range: 0.20-1.00 TP 7.0 g/dL (Normal) Range: 6.4-8.9 CA 9.5 mg/dL (Normal) Range: 8.5-10.1 CREAT 1.1 mg/dL (Normal) Range: 0.6-1.3 GLU 94 mg/dL (Normal) Range: 74-106 BUN 16 mg/dL (Normal) Range: 7-18 OSMO 281 (Normal) Range: 275-295 AGAP 11.70 mmol/L (Normal) Range: 10.00-20.00 CO2 31.7 mmol/L (Normal) Range: 21.0-32.0 CL 101 mmol/L (Normal) Range: 98-107 K 4.4 mmol/L (Normal) Range: 3.5-5.1 NA 140 mmol/L (Normal) Range: 136-145 61-Zmf-[id number]:43 CBC with automated Diff (Hgb,HCT, RBC, WBC and PLT) (87035) manual diff Not Indicated (Normal) mpv 9.20 fL (Normal) Range: 0.00-99.90 PLT 270.0 10*3/uL (Normal) Range: 150.0-450.0 RDW 14.1 % (Normal) Range: 11.5-14.5 MCHC 33.5 g/dL (Normal) Range: 31.0-36.0 MCH 30.7 pg (Normal) Range: 27.0-31.2 MCV 91.8 fL (Normal) Range: 80.0-97.0 HCT 45.7 % (Normal) Range: 39.0-54.0 HGB 15.30 g/dL (Normal) Range: 13.00-17.00 Baso% 0.400 % (Normal) Range: 0.000-1.000 RBC 4.98 {M/uL} (Normal) Range: 4.60-6.20 eos% 4.30 % (Abnormal) Range: 0.00-3.00 mono% 8.70 % (Normal) Range: 0.00-9.00 LYM% 26.50 % (Normal) Range: 20.00-40.00 bri% 60.10 % (Normal) Range: 55.00-75.00 Baso 0.030 10*3/uL (Normal) Range: 0.000-0.100 eos 0.330 10*3/uL (Normal) Range: 0.000-4.000 mono 0.67 10*3/uL (Normal) Range: 0.00-0.70 LYMPHS 2.04 10*3/uL (Normal) Range: 0.90-4.20 bri 4.62 10*3/uL (Normal) Range: 2.50-7.80 wbc 7.69 10*3/uL (Normal) Range: 4.50-10.50 :43 Routine Venipuncture (32627) Draw Drawn (Normal) :57 CBC with automated Diff (Hgb,HCT, RBC, WBC and PLT) (33583) manual diff Not Indicated (Normal) mpv 9.60 fL (Normal) Range: 0.00-99.90 PLT 256.0 10*3/uL (Normal) Range: 150.0-450.0 RDW 14.4 % (Normal) Range: 11.5-14.5 MCHC 34.2 g/dL (Normal) Range: 31.0-36.0 MCH 30.5 pg (Normal) Range: 27.0-31.2 MCV 89.3 fL (Normal) Range: 80.0-97.0 HCT 44.2 % (Normal) Range: 39.0-54.0 HGB 15.10 g/dL (Normal) Range: 13.00-17.00 RBC 4.95 {M/uL} (Normal) Range: 4.60-6.20 Baso% 0.300 % (Normal) Range: 0.000-1.000 eos% 3.90 % (Abnormal) Range: 0.00-3.00 mono% 12.00 % (Abnormal) Range: 0.00-9.00 LYM% 27.40 % (Normal) Range: 20.00-40.00 bri% 56.40 % (Normal) Range: 55.00-75.00 Baso 0.030 10*3/uL (Normal) Range: 0.000-0.100 eos 0.360 10*3/uL (Normal) Range: 0.000-4.000 mono 1.10 10*3/uL (Abnormal) Range: 0.00-0.70 LYMPHS 2.52 10*3/uL (Normal) Range: 0.90-4.20 bri 5.19 10*3/uL (Normal) Range: 2.50-7.80 wbc 9.20 10*3/uL (Normal) Range: 4.50-10.50 :57 CMP (24963) eGFR 60.1 {mL/min/1.73m2} (Normal) Comments: Stages of Chronic Kidney DiseaseStage: GFR Rate: Description: 1 90+ Normal Renal Function 2 60-89 Mildly Reduced Renal Function 3 45-59 Moderate Decrease in Renal Function 3b 30-44 Moderate Decrease in Renal Function 4 15-29 Severely Reduced Renal Function 5 <15 Very Severe Renal Failure ALTI 31 U/L (Normal) Range: 12-78 AST 18 [iU]/L (Normal) Range: 15-37 ALP 63 U/L (Normal) Range: 50-136 a/g ratio 1.14 (Normal) Range: 1.00-2.10 globulin 3.5 g/dL (Normal) Range: 2.4-5.0 ALB 4.0 g/dL (Normal) Range: 3.4-5.0 TP 7.5 g/dL (Normal) Range: 6.4-8.9 T.MARINA 0.30 mg/dL (Normal) Range: 0.20-1.00 GLU 90 mg/dL (Normal) Range: 74-106 CA 9.6 mg/dL (Normal) Range: 8.5-10.1 CREAT 1.3 mg/dL (Normal) Range: 0.6-1.3 OSMO 277 (Normal) Range: 275-295 BUN 23 mg/dL (Abnormal) Range: 7-18 AGAP 10.80 mmol/L (Normal) Range: 10.00-20.00 CO2 29.6 mmol/L (Normal) Range: 21.0-32.0 CL 101 mmol/L (Normal) Range: 98-107 K 4.4 mmol/L (Normal) Range: 3.5-5.1 NA 137 mmol/L (Normal) Range: 136-145 [id number]:57 Routine Venipuncture (55252) Draw Drawn (Normal) [id number] HEMOGLOBIN GLYCLATED (HGB A1C) (04736) A1C 5.7 % (Normal) Range: 4.3-6.0 29-Ocx-112676:26 STATFLU (84429) Comments: Items in this order include: StatFlu STATFLU Negative for Influz A & B (Normal) :13 Draw Charge[i] Draw Drawn (Normal) :13 CMP (13432) Comments: Items in this order include: CBC, [...] 9.2 mg/dL (Normal) Range: 8.4-10.2 eGFR 54.3 {mL/min/1.73m2} (Abnormal) CREAT 1.4 mg/dL (Abnormal) Range: 0.6-1.3 OSMO 282 (Normal) Range: 275-295 BUN 15 mg/dL (Normal) Range: 7-18 AGAP 17.20 mmol/L (Normal) Range: 10.00-20.00 CO2 26.3 mmol/L (Normal) Range: 21.0-32.0 CL 101 mmol/L (Normal) Range: 98-107 K 4.5 mmol/L (Normal) Range: 3.5-5.0 NA 140 mmol/L (Normal) Range: 135-145 :13 CBC FEMALE- ORDER THIS ONE! (13097) manual diff Not Indicated (Normal) mpv 9.30 fL (Normal) Range: 0.00-99.90 PLT 202.0 10*3/uL (Normal) Range: 150.0-450.0 RDW 14.6 % (Abnormal) Range: 11.5-14.5 MCHC 33.4 g/dL (Normal) Range: 31.0-36.0 MCH 30.4 pg (Normal) Range: 27.0-31.2 MCV 90.9 fL (Normal) Range: 80.0-97.0 HCT 45.8 % (Normal) Range: 39.0-54.0 HGB 15.30 g/dL (Normal) Range: 13.00-17.00 RBC 5.04 {M/uL} (Normal) Range: 4.60-6.20 Baso% 0.200 % (Normal) [...] 2.50-7.80 wbc 11.66 10*3/uL (Abnormal) Range: 4.50-10.50 Advance Directives * No Advance Directive Information Available Encounters Historical Summary [facility] On: 20-Aug-2018 15:48 End: 20-Aug-2018 15:50 Medication Entry - Hypertension (401.9 | I10) [facility] On: 05-Aug-2018 17:58 End: 06-Aug-2018 8:50 Office Visit - Hypertension (401.9 | I10), Positive colorectal cancer screening using Cologuard test (787.7 | R19.5) Encounter Reason: Hypertension - Symptoms do not include headache, dizziness or shortness of breath. Associated symptoms do not include chest pain. Current treatment includes angiotensin receptor blockers. By report there is good compliance with treatment. Note for "Hypertension": Patient said that since the dosage of his losartan was increased he has been having frequent episodes of lightheadedness throughout the day. However, he brings in his measurements and he is consistently running too high with readings of 140s-150/80s.Colon Cancer Screening: He is not having any symptoms and never had a colonoscopy so we did a Cologard that was positive. He is scheduled for colonoscopy next week. He has a family history of colon cancer.[facility] On: 09-Jul-2018 11:20 End: 12-Jul-2018 15:11 Historical Summary [facility] On: 09-Jul-2018 11:20 End: 08-Jul-2018 14:28 Office Visit - Health education (V65.40 | Z71.9), Hypertension (401.9 | I10), Hyperglycemia (790.29 | R73.9), Screening for prostate cancer (V76.44 | Z12.5), Screen for colon cancer (V76.51 | Z12.11), Trigger point of right shoulder region (719.41 | M25.511), Myofascial pain on right side (729.1 | M79.18) Encounter Reason: Hypertension - Symptoms do not include headache, dizziness or shortness of breath. Associated symptoms do not include chest pain. Note for "Hypertension": Patient said he checks his blood pressure daily in the mornings. Some of his readings have been higher than norml for him. Around 150/90. He denies any headaches or dizziness. Overall he is feeling well.[facility] On: 01-Jun-2018 8:40 End: 20-Jun-2018 10:34 Medication Entry - Bronchitis, acute (466.0 | J20.9) [facility] On: 04-May-2018 9:04 End: 04-May-2018 9:09 Historical Summary [facility] On: 20-Mar-2018 10:00 End: 19-Mar-2018 10:23 Office Visit - Hyperglycemia (790.29 | R73.9), Hypertension (401.9 | I10) Encounter Reason: hyperglycemia - Pt here for f/u of hyperglycemia. Has been testing his blood sugars fasting in the am. The highest reading has been 109. Pt has also made changes in his diet. He got a new nadege and his blood sugars have been reading much better. His highest blood sugar was 117 and his lowest has been 88. He has not had any symptoms of hypoglycemia. He also made dietary changes that have helped as well. , [ADDITIONAL REASON] Hypertension - Symptoms include headache, while symptoms do not include dizziness or shortness of breath. Note for "Hypertension": Has been recording his b/p readings. Range 132/89 to 150/97. Also has been recording his fasting blood sugars and wants to discuss this also. They range from 122-155. He has been using an older nadege and has been watching his diet better of late.HIs blood pressure readings are running 117/79 to 138/81 [facility] On: 20-Mar-2018 10:00 End: 23-Apr-2018 21:33 Medication Entry - Hyperglycemia (790.29 | R73.9) [facility] On: 02-Mar-2018 10:38 End: 02-Mar-2018 11:34 Office Visit - Hypertension (401.9 | I10), Hyperglycemia (790.29 | R73.9) Encounter Reason: Hypertension - Symptoms include headache, while symptoms do not include dizziness or shortness of breath. Note for "Hypertension": Has been recording his b/p readings. Range 132/89 to 150/97. Also has been recording his fasting blood sugars and wants to discuss this also. They range from 122-155. He has been using an older nadege and has been watching his diet better of late.[facility] On: 16-Feb-2018 16:20 End: 18-Mar-2018 10:26 Nurse Visit - MEDICARE need for immunization against influenza (Renamed from Need for immunization against influenza) (V04.81 | Z23) [facility] On: 16-Jan-2018 11:50 End: 16-Jan-2018 12:01 Office Visit - Closed head injury with concussion, with loss of consciousness of 30 minutes or less, sequela (907.0 | S06.0X1S), Carpal tunnel syndrome on right (354.0 | G56.01) Encounter Reason: Transition into care - The patient is transitioning into care from a hospital and a summary of care was reviewed. Note for "Transition into care": Patient here for f/u of hospitalization for syncopal episode on 12-19-17 after having carpal tunnel surgery earlier that day. States occasionally still has some "fuzziness". 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 He was treated with IV fluids and anti-emetics and eventually dismissed from outpatient surgery. His drove him home and once there he ambulated into the restroom and sat down. He was clammy and cold and nauseous a nd then became syncopal. He fell face first and struck the bathroom counter. He remained unconscious after that so his called 911 and EMS transported him to the ER. He did come to consciousness after EMS arrived. He was groggy and not able to care for himself so he was placed in OBS overnight. He had CT head and neck that did not show acute problem. Labs were checked and he received IV hydration. In the morning he was able to eat, drink and get himself to the restroom so was stable for discharge. Since arriving home he has done well with the carpal tunnel. His hand swelling is 50% better, the numbness is wearing off and he is getting some driver salesman back. He needs a stitch removed today. He does wake daily with a headache and is not sleeping well. He is using some Tylenol sparingly for the headache. He has felt a little fuzzy and fatigued but has resumed working. [facility] On: 25-Dec-2017 11:20 End: 25-Dec-2017 19:58 Historical Summary [facility] On: 25-Dec-2017 11:20 End: 24-Dec-2017 15:02 Office Visit - GERD with esophagitis (530.11 | K21.0) Encounter Reason: Heartburn - Symptoms include dysphagia and pain, while symptoms do not include chest discomfort, weight loss, regurgitation, acid taste in the mouth or sore throat. Onset was gradual 4 week(s) ago. The episodes occur daily. The patient describes this as worsening. Symptoms are relieved by antacids. Associated symptoms include belching, hoarseness and cough, while associated symptoms do not include nausea, vomiting, hematemesis, diarrhea or bloating.[facility] On: 20-Oct-2017 13:40 End: 11-Nov-2017 21:34 Office Visit - Bronchitis, acute (466.0 | J20.9) Encounter Reason: Cough - Symptoms include cough, dyspnea and wheezing, while symptoms do not include fever, runny nose, stuffy nose, sore throat, pleuritic chest pain, chest pain or vomiting. The cough is described as tight. Cough onset was gradual 3 week(s) ago. Note for "Cough": Pt has had cough for past 3 weeks. Productive @ times.[facility] On: 24-Jun-2017 15:24 End: 14-Jul-2017 18:09 Office Visit - Bronchitis, acute (466.0 | J20.9) Encounter Reason: Cough - Symptoms include cough, runny nose and sore throat, while symptoms do not include dyspnea, wheezing, chills, fever, myalgias or chest pain. Onset of cough followed cold symptoms. Symptoms are described as worsening. Symptoms are exacerbated by going outside and lying down, while symptoms are not exacerbated by inhaled bronchodilator use. Symptoms are relieved by avoiding irritants, resting and sitting up, while symptoms are not relieved by cough medicine, nonsteroidal anti-inflammatory drugs or inhaled bronchodilator use. Associated symptoms include postnasal drainage, hoarseness, painful swallowing and eye itching, while associated symptoms do not include mouth breathing or noisy breathing.[facility] On: 05-Jun-2017 11:40 End: 05-Jun-2017 20:07 Lab entry only - Cough (786.2 | R05) [facility] On: 04-Jun-2017 16:17 End: 04-Jun-2017 16:18 Medication Entry - Atopic dermatitis (691.8 | L20.9) [facility] On: 18-Feb-2017 10:25 End: 18-Feb-2017 10:28 Nurse Visit - Encounter for administration of vaccine (V05.9 | Z23) [facility] On: 28-Jan-2017 14:24 End: 28-Jan-2017 15:09 Nurse Visit - Encounter for administration of vaccine (V05.9 | Z23) [facility] On: 19-Feb-2016 15:48 End: 19-Feb-2016 17:03 Office Visit - Sleep disturbance (780.50 | G47.9) Encounter Reason: Sleeping difficulty - Note for "Sleeping difficulty": Pt states can get to sleep but is having difficulty staying alseep. Wakes 2-3am regularly, and then has much difficulty getting back to sleep. This has been occuring for some time but is [facility]: 19-Jul-2015 15:19 End: 14-Aug-2015 3:54 Nurse Visit - Flu vaccine need (V04.81 | Z23) [facility] On: 14-Feb-2015 17:17 End: 14-Feb-2015 17:20 Nurse Visit - Need for pneumococcal vaccination (V03.82 | Z23) [facility] On: 28-Dec-2014 16:36 End: 28-Dec-2014 16:56 Office Visit - Pneumonia (486 | J18.9) Encounter Reason: Transition into care - The patient is transitioning into care from a hospital and a summary of care was reviewed . Note for "Transition into care": F/u for hospitolization for pnewmonia. Pt c/o right ear discomfort and states Flovent is causing some hoarseness. Also c/o fatigue.[facility] On: 01-Nov-2014 14:11 End: 13-Nov-2014 21:36 Admission Note - Fever (780.60 | R50.9), Cough (786.2 | R05), Pneumonia (486 | J18.9) Encounter Reason: Fever - Note for "Fever": Chills, fever, chest congestion, cough, sore throat, and a little SOB since Sat.. Nauseated this [facility] On: 25-Oct-2014 8:39 End: 13-Nov-2014 21:29 Office Visit - Hip pain, chronic (719.45 [...] be active but not so much anymore. [facility] On: 29-Jul-2014 16:25 End: 23-Aug-2014 2:51 Office Visit - Atopic dermatitis (691.8 | L20.9), Hip pain, chronic (719.45 | M25.559) Encounter Reason: Rash - Symptoms include skin bumps, crusting, draining, skin redness, skin scaling and skin swelling. The skin rash is located on the left leg, left foot, right leg and right foot. Onset was 3 week(s) ago.[facility] On: 29-Oct-2013 15:11 End: 30-Oct-2013 9:36 Insurance * Shlomo Santoyo ; holli guarantor * Medicare WPS * [employer] * [facility]
--- OUTSIDE RECORDS SUMMARY | 2018-09-18 17:12 | XMS REPORT | Continuity of Care Document ---
Author Author [facility] Organization [facility] Address [address] [place] [address] Phone Care Team Providers Care Platinumsmith Name Role Phone Jeannie Tomas DO PP Jeannie Tomas DO Unavailable Freya Page Unavailable Unavailable Unavailable Problems Name Dates Details Atopic dermatitis (691.8, L20.9) Status: Active Hip pain, chronic (719.45, M25.559) Status: Active Hypoglycemia Status: Active Pneumonia Comments: 1988 Status: Active Medications Name Dates Details ASPIRIN CHILD, 81MG (Oral Tablet Chewable) - Historical Medication 1 daily (81 MG) Active BENADRYL ALLERGY, 25MG (Oral Capsule) - Historical Medication 1 as needed (25 MG) Active Comments: Medication taken as needed. FISH OIL, 435MG (Oral Capsule) - Historical Medication 1 daily (435 MG) Active MOMETASONE FUROATE, 0.1% (External Ointment) Apply to rash Ointment bid for 0 days Quantity: 45 {Gram} Ordered: Jeannie Tomas DO* Start Active MOMETASONE FUROATE, 0.1% (External Ointment) Apply to rash Ointment bid for 0 days * Quantity: 45 {Gram} Refills: 3 Ordered: Jeannie Tomas DO* Start Active MULTIVITAMIN (PO Tab) - Historical Medication 1 daily Active POTASSIUM GLUCONATE, 595MG (Oral Tablet) - Historical Medication 1 BID (595 MG) Active VITAMIN B-1, 250MG (Oral Tablet) - Historical Medication 1BID (250 MG) Active VITAMIN C ER, 1000-100MG (Oral Tablet Extended Release) - Historical Medication 2 daily (1000-100 MG) Active VITAMIN E NATURAL, 1000UNIT (Oral Capsule) - Historical Medication 1 daily (1000 UNIT) Active Allergies and Adverse Reactions Name Dates Details Penicillins (Allergy) Status: Active Comments: Headache and very sleepy Poison Judy (Allergy) Status: Active Past Medical History No Significant Medical History. Procedures Procedure Dates Details Hernia Repair Completed:1981 Comments: Right. Tonsillectomy Comments: 4th grade Family History Name Dates Details Alzheimer's disease Comments: Father. Status: Active Arteriosclerotic Cardiovascular Disease Comments: Father. First Degree Relatives. Has Artificial Heart Valve. still living Status: Active Hypertension Comments: Mother. First Degree Relatives. Status: Active Social History Name Dates Details No Drug Use Status: Active Non Drinker/No Alcohol Use Status: Active Tobacco use: Never smoker. Status: Active Vital Signs Date Test Result Details 15:11 Temperature 98.3 f Comments: Method: Temporal Pulse 80 /min Comments: Pattern: Regular BP Systolic 132 mm[Hg] Comments: Patient Position: Sitting; Cuff Location: Left Arm; Cuff Size: Standard BP Diastolic 88 mm[Hg] Comments: Patient Position: Sitting; Cuff Location: Left Arm; Cuff Size: Standard Weight 163 lb Height 66 in Body Mass Index Calculated 26.31 kg/m2 Body Surface Area Calculated 1.83 m2 Results No Known Results Advance Directives Encounters Office Visit - Atopic dermatitis (691.8 | L20.9), Hip pain, chronic (719.45 | M25.559) Encounter Reason: Rash - Symptoms include skin bumps, crusting, draining, skin redness, skin scaling and skin swelling. The skin rash is located on the left leg, left foot, right leg and right foot. Onset was 3 week(s) ago.[facility] to Insurance * Shlomo Santoyo ; holli guarantor * [facility] [employer] * NOT LISTED"
--- OUTSIDE RECORDS SUMMARY | 2018-09-18 17:13 | XMS REPORT | Continuity of Care Document ---
Author Author [facility] Organization [facility] Address [address] [place] [address] Phone Care Team Providers Care Wool Batting Worker Name Role Phone Jeannie Tomas DO PP Jeannie Tomas DO Unavailable Karen Littlejohn Unavailable Unavailable Gail Rios Unavailable Unavailable Jayde Olmedo Unavailable Unavailable Unavailable [...] Procedure Dates Details INTRAMUSCULAR INJECTION OF VACCINE (08081) Ordered:28-Jan-2017 INTRAMUSCULAR ADMINISTRATION OF HIGH DOSE SPLIT VIRUS PRESERVATIVE FREE INFLUENZA VACCINE (96903) Completed:28-Jan-2017 IMMUNIZ ADMNIN, 1 VAC, SNGL/COMBO (24951) Ordered:19-Feb-2016 FLU VAC * QUADRIVALENT , 3-64 YRS INTRAMUSC (58735) Completed:19-Feb-2016 IMMUNIZ ADMNIN, 1 VAC, SNGL/COMBO (55481) Ordered:14-Feb-2015 FLU VAC * QUADRIVALENT , 3-64 YRS INTRAMUSC (33985) Completed:14-Feb-2015 ADMINISTRATION OF PNEUMOCOCCAL VACCINE (G0009) Ordered:28-Dec-2014 PNEUMOCOCCAL VACCINE (93606) Completed:28-Dec-2014 CHEST X-RAY, TWO VIEWS (19843) Completed: CHEST X-RAY, TWO VIEWS (30047) Completed: CHEST X-RAY, TWO VIEWS (06332) Completed:29-Jul-2014 X-RAY EXAM OF HIP, COMPLETE (2 View) ([id number]) Completed:29-Jul-2014 Flu Vaccine Completed:19-Feb-2016 Flu Vaccine Completed:28-Jan-2017 Hernia Repair Completed:1981 Comments: Right. Pneumovax Completed:28-Dec-2014 Tonsillectomy Comments: 4th grade Immunization Name Dates Details Influenza, preserv. free, enhanced immunogncty, IM Lot #: [id number] Administered on:28-Jan-2017 Comments: Site: Deltoid (Left) Influenza, preservative free (3 years and up) Lot #: [id number] Administered on:14-Feb-2015 Comments: Site: Deltoid (Left) Influenza, preservative free (3 years and up) Lot #: [id number] Administered on:19-Feb-2016 Comments: Site: Deltoid (Left) Pneumococcal (2 years and up) Lot #: [id number] Administered on:28-Dec-2014 Comments: Site: Deltoid (Left) Family [...] 09:13 Draw Charge[i] Draw Drawn (Normal) 09:13 [facility] ([id number]) Comments: Items in this order include: CBC, [...] 135-145 09:13 CBC FEMALE- ORDER THIS ONE! (31783) manual diff Not Indicated (Normal) mpv 9.30 [...] 11.66 10*3/uL (Abnormal) Range: 4.50-10.50 Advance Directives Encounters Medication Entry - Atopic dermatitis (691.8 | L20.9) [facility] On 18-Feb-2017 10:25 to 10:28 Nurse Visit - Encounter for administration of vaccine (V05.9 | Z23) [facility] On 28-Jan-2017 14:24 to 15:09 Nurse Visit - Encounter for administration of vaccine (V05.9 | Z23) [facility] On 19-Feb-2016 15:48 to 17:03 Office Visit - Sleep disturbance (780.50 | G47.9) Encounter Reason: Sleeping difficulty - Note for "Sleeping difficulty": Pt states can get to sleep but is having difficulty staying alseep. Wakes 2-3am regularly, and then has much difficulty getting back to sleep. This has been occuring for some time but [facility] Nurse Visit - Flu vaccine need (V04.81 | Z23) [facility] On 14-Feb-2015 17:17 to 17:20 Nurse Visit - Need for pneumococcal vaccination (V03.82 | Z23) [facility] On 28-Dec-2014 16:36 to 16:56 Office Visit - Pneumonia (486 | J18.9) Encounter Reason: Transition into care - The patient is transitioning into care from a hospital and a summary of care was reviewed . Note for "Transition into care": F/u for hospitolization for pnewmonia. Pt c/o right ear discomfort and states Flovent is causing some hoarseness. Also c/o fatigue.[facility] to 13-Nov-2014 Admission Note - Fever (780.60 | R50.9), Cough (786.2 | R05), Pneumonia (486 | J18.9) Encounter Reason: Fever - Note for "Fever": Chills, fever, chest congestion, cough, sore throat, and a little SOB since Sat.. Nauseated this [facility] to 13-Nov-2014 Office Visit - Hip pain, [...] be active but not so much anymore. [facility] 29-Jul-2014 to 23-Aug-2014 Office Visit - Atopic dermatitis (691.8 | L20.9), Hip pain, chronic (719.45 | M25.559) Encounter Reason: Rash - Symptoms include skin bumps, crusting, draining, skin redness, skin scaling and skin swelling. The skin rash is located on the left leg, left foot, right leg and right foot. Onset was 3 week(s) ago.[facility] to Insurance * Shlomo Santoyo ; holli guarantor * Medicare WPS * [facility] [employer]
--- OUTSIDE RECORDS SUMMARY | 2018-09-18 17:13 | XMS REPORT | Continuity of Care Document ---
Author Author [facility] Organization [facility] Address [address] [place] [address] Phone Care Team Providers Care Business Administration Instructor Name Role Phone Jeannie Tomas DO PP Jeannie Tomas DO Unavailable Gail Rios Unavailable Unavailable Unavailable Problems Name Dates Details Atopic dermatitis (691.8, L20.9) Status: Active Cough (786.2, R05) Status: Active Fever (780.60, R50.9) Status: Active Flu vaccine need (V04.81, Z23) Status: Active Hip pain, chronic (719.45, M25.559) [...] 19-Jul-2015 Active LACTOBACILLUS (Oral Capsule) bid Active MOMETASONE FUROATE, 0.1% (External Ointment) prn (0.1 %) Active MULTIVITAMIN (PO Tab) 1 daily Active [...] Significant Medical History. Procedures Procedure Dates Details IMMUNIZ ADMNIN, 1 VAC, SNGL/COMBO (46276) Ordered:14-Feb-2015 FLU VAC * QUADRIVALENT , 3-64 YRS INTRAMUSC (22001) Completed:14-Feb-2015 ADMINISTRATION OF PNEUMOCOCCAL VACCINE (G0009) Ordered:28-Dec-2014 PNEUMOCOCCAL VACCINE (60555) Completed:28-Dec-2014 CHEST X-RAY, TWO VIEWS ([id number]) Completed: CHEST X-RAY, TWO VIEWS (52639) Completed: CHEST X-RAY, TWO VIEWS (84503) Completed:29-Jul-2014 X-RAY EXAM OF HIP, COMPLETE (2 View) ([id number]) Completed:29-Jul-2014 Flu Vaccine Comments: Date: 02/14/2015. Hernia Repair Completed:1981 Comments: Right. Pneumovax Completed:28-Dec-2014 Tonsillectomy Comments: 4th grade Immunization Name Dates Details Influenza, preservative free (3 years and up) Lot #: [id number] Administered on:14-Feb-2015 Comments: Site: Deltoid (Left) Pneumococcal (2 years and up) Lot #: [id number] Administered on:28-Dec-2014 Comments: Site: Deltoid (Left) Family [...] 09:13 Draw Charge[i] Draw Drawn (Normal) 09:13 [facility] ([id number]) Comments: Items in this order include: CBC, [...] 135-145 09:13 CBC FEMALE- ORDER THIS ONE! (83508) manual diff Not Indicated (Normal) mpv 9.30 [...] 10*3/uL (Abnormal) Range: 4.50-10.50 Advance Directives Encounters Review - Sleep disturbance (780.50 | G47.9) Encounter Reason: Sleeping difficulty - Note for "Sleeping difficulty": Pt states can get to sleep but is having difficulty staying alseep. Wakes 2-3am regularly, and then has much difficulty getting back to sleep. This has been occuring for some time but [facility]19 Nurse Visit - Flu vaccine need (V04.81 | Z23) [facility] On 14-Feb-2015 17:17 to 17:20 Nurse Visit - Need for pneumococcal vaccination (V03.82 | Z23) [facility] On 28-Dec-2014 16:36 to 16:56 Office Visit - Pneumonia (486 | J18.9) Encounter Reason: Transition into care - The patient is transitioning into care from a hospital and a summary of care was reviewed . Note for "Transition into care": F/u for hospitolization for pnewmonia. Pt c/o right ear discomfort and states Flovent is causing some hoarseness. Also c/o fatigue.[facility] to 13-Nov-2014 Admission Note - Fever (780.60 | R50.9), Cough (786.2 | R05), Pneumonia (486 | J18.9) Encounter Reason: Fever - Note for "Fever": Chills, fever, chest congestion, cough, sore throat, and a little SOB since Sat.. Nauseated this [facility] to 13-Nov-2014 Office Visit - Hip pain, [...] be active but not so much anymore. [facility] 29-Jul-2014 to 23-Aug-2014 Office Visit - Atopic dermatitis (691.8 | L20.9), Hip pain, chronic (719.45 | M25.559) Encounter Reason: Rash - Symptoms include skin bumps, crusting, draining, skin redness, skin scaling and skin swelling. The skin rash is located on the left leg, left foot, right leg and right foot. Onset was 3 week(s) ago.[facility] to Insurance * Shlomo Santoyo ; a guarantor * [facility] * [facility] * [place] [employer]
--- OUTSIDE RECORDS SUMMARY | 2018-09-18 17:13 | XMS REPORT | Continuity of Care Document ---
Author Author [facility] [place] Organization [facility] [place] Address [address] [place] [address] Phone Care Team Providers Care Plastics Bench Mechanic Name Role Phone Jeannie Tomas DO PP Jeannie Tomas DO Unavailable Gail Rios Unavailable Unavailable Unavailable Problems Name Dates Details Atopic dermatitis (691.8, L20.9) Status: Active Cough (786.2, R05) Status: Active Fever (780.60, R50.9) Status: Active Hip pain, chronic (719.45, M25.559) Status: Active Hypoglycemia Status: Active Persistent cough (786.2, R05) Status: Active Pneumonia (486, J18.9) Status: Active Pneumonia Comments: 1988 Status: Active Medications Name Dates Details ALBUTEROL SULFATE, 0.63MG/3ML (Inhalation Nebulization Solution) - Historical Medication 2 puffs every 6 hours (0.63 MG/3ML) Active ASPIRIN BUFFERED (PO Tab) - Historical Medication 1 daily (325 MG) Active FLOVENT HFA, 110MCG/ACT (Inhalation Aerosol) - Historical Medication 2 puffs bid (110 MCG/ACT) Active HYDROCHLOROTHIAZIDE, 25MG (Oral Tablet) - Historical Medication 1 daily (25 MG) Active IBUPROFEN PMR, 200MG (PO Tab) - Historical Medication 3 prn (200 MG) Active LACTOBACILLUS (Oral Capsule) - Historical Medication bid Active LEVAQUIN, 500MG (Oral Tablet) - Historical Medication 1 daily (500 MG) Active MOMETASONE FUROATE, 0.1% (External Ointment) Apply to rash Ointment Ointment bid for 0 days Quantity: 45 {Gram} Ordered: Gail Rios * Start Active MOMETASONE FUROATE, 0.1% (External Ointment) Apply to rash Ointment Ointment bid for 0 days * Quantity: 45 {Gram} Refills: 3 Ordered: Gail Rios * Start Active MULTIVITAMIN (PO Tab) - Historical Medication 1 daily Active TYLENOL EXTRA STRENGTH, 500MG (Oral Tablet) - Historical Medication prn (500 MG) Active VITAMIN B-1, 250MG (Oral Tablet) - Historical Medication 1BID (250 MG) Active VITAMIN C ER, 1000-100MG (Oral Tablet Extended Release) - Historical Medication 2 daily (1000-100 MG) Active ASPIRIN CHILD, 81MG (Oral Tablet Chewable) - Historical Medication 1 daily (81 MG) Inactive BENADRYL ALLERGY, 25MG (Oral Capsule) - Historical Medication 1 as needed (25 MG) Inactive Comments: Medication taken as needed. FISH OIL, 435MG (Oral Capsule) - Historical Medication 1 daily (435 MG) Inactive POTASSIUM GLUCONATE, 595MG (Oral Tablet) - Historical Medication 1 BID (595 MG) Inactive PREDNISONE, 20MG (Oral Tablet) 2 x 3d, 1 x 4d Tablet po qd with food for 0 days * Quantity: 10 {Tablet} Refills: 0 Ordered: Gail Rios * Start 29-Jul-2014 End Inactive VITAMIN E NATURAL, 1000UNIT (Oral Capsule) - Historical Medication 1 daily (1000 UNIT) Inactive Allergies and Adverse Reactions Name Dates Details Penicillins (Allergy) Status: Active Comments: Headache and very sleepy Poison Judy (Allergy) Status: Active Past Medical History No Significant Medical History. Procedures Procedure Dates Details CHEST X-RAY, TWO VIEWS ([id number]) Completed: CHEST X-RAY, TWO VIEWS (57389) Completed: CHEST X-RAY, TWO VIEWS ([id number]) Completed:29-Jul-2014 X-RAY EXAM OF HIP, COMPLETE (2 View) ([id number]) Completed:29-Jul-2014 Hernia Repair Completed:1981 Comments: Right. Tonsillectomy Comments: [...] Active Vital Signs Date Test Result Details 14:12 Temperature 99.1 f Comments: Method: Temporal [...] 09:13 Draw Charge[i] Draw Drawn (Normal) 09:13 [facility] ([id number]) Comments: Items in this order include: CBC, [...] 135-145 09:13 CBC FEMALE- ORDER THIS ONE! ([id number]) manual diff Not Indicated (Normal) mpv 9.30 [...] 10*3/uL (Abnormal) Range: 4.50-10.50 Advance Directives Encounters Office Visit - Pneumonia (486 | J18.9) Encounter Reason: Transition into care - The patient is transitioning into care from a hospital and a summary of care was reviewed . Note for "Transition into care": F/u for hospitolization for pnewmonia. Pt c/o right ear discomfort and states Flovent is causing some hoarseness. Also c/o fatigue.[facility] [place] to 13-Nov-2014 Admission Note - Fever (780.60 | R50.9), Cough (786.2 | R05), Pneumonia (486 | J18.9) Encounter Reason: Fever - Note for "Fever": Chills, fever, chest congestion, cough, sore throat, and a little SOB since Sat.. Nauseated this [facility] to 13-Nov-2014 Office Visit - [...] be active but not so much anymore. [facility] [place] 29-Jul-2014 to 23-Aug-2014 Office Visit - Atopic dermatitis (691.8 | L20.9), Hip pain, chronic (719.45 | M25.559) Encounter Reason: Rash - Symptoms include skin bumps, crusting, draining, skin redness, skin scaling and skin swelling. The skin rash is located on the left leg, left foot, right leg and right foot. Onset was 3 week(s) ago.[facility] [place] to Insurance * Shlomo Santoyo ; a guarantor * [facility] * [facility] * [place] [employer]
--- OUTSIDE RECORDS SUMMARY | 2018-09-18 17:14 | XMS REPORT | Continuity of Care Document ---
Author Author [facility] Organization [facility] Address [address] [place] [address] Phone Care Team Providers Care Senior Electronics Engineer Name Role Phone Jeannie Tomas DO PP [...] Significant Medical History. Procedures Procedure Dates Details ADMINISTRATION OF PNEUMOCOCCAL VACCINE (G0009) Ordered:28-Dec-2014 PNEUMOCOCCAL VACCINE ([id number]) Completed:28-Dec-2014 CHEST X-RAY, TWO VIEWS ([id number]) Completed: CHEST X-RAY, TWO VIEWS (51161) Completed: CHEST X-RAY, TWO VIEWS (28206) Completed:29-Jul-2014 X-RAY EXAM OF HIP, COMPLETE (2 View) ([id number]) Completed:29-Jul-2014 Hernia Repair Completed:1982 Comments: Right. Pneumovax Completed:28-Dec-2014 Tonsillectomy Comments: 4th grade Immunization Name Dates Details Pneumococcal (2 years and up) Lot #: [id number] Administered on:28-Dec-2014 Comments: Site: Deltoid (Left) Family [...] 09:13 Draw Charge[i] Draw Drawn (Normal) 09:13 [facility] ([id number]) Comments: Items in this order include: CBC, [...] 135-145 09:13 CBC FEMALE- ORDER THIS ONE! ([id number]) manual diff Not Indicated (Normal) mpv 9.30 [...] 10*3/uL (Abnormal) Range: 4.50-10.50 Advance Directives Encounters Nurse Visit - Need for pneumococcal vaccination (V03.82 | Z23) [facility] On 28-Dec-2014 16:36 to 16:56 Office Visit - Pneumonia (486 | J18.9) Encounter Reason: Transition into care - The patient is transitioning into care from a hospital and a summary of care was reviewed . Note for "Transition into care": F/u for hospitolization for pnewmonia. Pt c/o right ear discomfort and states Flovent is causing some hoarseness. Also c/o fatigue.[facility] to 13-Nov-2014 Admission Note - Fever (780.60 | R50.9), Cough (786.2 | R05), Pneumonia (486 | J18.9) Encounter Reason: Fever - Note for "Fever": Chills, fever, chest congestion, cough, sore throat, and a little SOB since Sat.. Nauseated this [facility] to 13-Nov-2014 Office Visit - Hip [...] be active but not so much anymore. [facility] 29-Jul-2014 to 23-Aug-2014 Office Visit - Atopic dermatitis (691.8 | L20.9), Hip pain, chronic (719.45 | M25.559) Encounter Reason: Rash - Symptoms include skin bumps, crusting, draining, skin redness, skin scaling and skin swelling. The skin rash is located on the left leg, left foot, right leg and right foot. Onset was 3 week(s) ago.[facility] to Insurance * Shlomo Santoyo ; a guarantor * [employer] * [employer] * [place] E-RX IVL
--- OUTSIDE RECORDS SUMMARY | 2018-09-18 17:14 | XMS REPORT | Continuity of Care Document ---
Author Author [facility] Organization [facility] Address [address] [place] [address] Phone Care Team Providers Care Sound Effects Technician Name Role Phone Jeannie Tomas DO PP Jeannie Tomas DO Unavailable Gail Rios Unavailable Unavailable Unavailable Problems Name Dates Details Atopic dermatitis (691.8, L20.9) Status: Active Bronchitis, acute (466.0, J20.9) Status: Active Encounter for administration of vaccine (V05.9, Z23) Status: Active Hip pain, chronic (719.45, M25.559) Status: Active Hypoglycemia Status: Active Need for pneumococcal vaccination (V03.82, Z23) Status: Active Pneumonia Comments: 1987 Status: Active Sleep disturbance (780.50, G47.9) Status: Active Medications Name Dates Details ASPIRIN BUFFERED (PO Tab) 1 daily (325 MG) Active ClonazePAM 0.5 MG Oral Tablet 1 (one) Tablet Tablet po qhs for 0 days Quantity: 30 {Tablet} Ordered:19-Jul-2015 Jeannie Tomas DO* Start 19-Jul-2015 Active LACTOBACILLUS (Oral Capsule) bid Active Mometasone Furoate 0.1 % External Ointment 1 (one) Ointment prn for 0 days * Quantity: 1 {Tube} Refills: 3 Ordered:18-Feb-2017 Jeannie Tomas DO* Start 18-Feb-2017 Active MULTIVITAMIN (PO Tab) 1 daily Active PredniSONE 10 MG Oral Tablet 3 po x 3d, then 2po x 3d Tablet then 1 po qd for 0 days * Quantity: 18 {Tablet} Refills: 0 Ordered:24-Jun-2017 Jeannie Tomas DO* Start 24-Jun-2017 Active Comments: Take with food. May take first dose today then take in the mornings. ProAir HFA 108 (90 Base) MCG/ACT Inhalation Aerosol Solution 2 puffs Aerosol Soln Aerosol Soln q 4 hours prn cough or wheeze for 0 days * Quantity: 1 {Inhaler} Refills: 1 Ordered:05-Jun-2017 Gail Rios * Start 05-Jun-2017 Active Roberto Perez 100 MG Oral Capsule 1 (one) Capsule po tid prn cough for 0 days * Quantity: 30 {Capsule} Refills: 0 Ordered:24-Jun-2017 Jeannie Tomas DO* Start 24-Jun-2017 Active VITAMIN B-1, 250MG (Oral Tablet) 1BID [...] days * Quantity: 1 {Package} Refills: 0 Ordered:24-Jun-2017 Gail Rios * Start 05-Jun-2017 End 24-Jun-2017 Inactive Allergies and Adverse Reactions Name Dates Details Penicillins (Allergy) Status: Active Comments: Headache and very sleepy Poison Judy (Allergy) Status: Active Past Medical History Name Dates Details Cough (786.2, R05) Status: Inactive Fever (780.60, R50.9) Status: Inactive Persistent cough (786.2, R05) Status: Inactive Pneumonia (486, J18.9) Status: Inactive Procedures Procedure Dates Details CHEST X-RAY, TWO VIEWS ([id number]) Completed:05-Jun-2017 INTRAMUSCULAR INJECTION OF VACCINE (58190) Ordered:28-Jan-2017 INTRAMUSCULAR ADMINISTRATION OF HIGH DOSE SPLIT VIRUS PRESERVATIVE FREE INFLUENZA VACCINE ([id number]) Completed:28-Jan-2017 IMMUNIZ ADMNIN, 1 VAC, SNGL/COMBO (86819) Ordered:19-Feb-2016 FLU VAC * QUADRIVALENT , 3-64 YRS INTRAMUSC (01319) Completed:19-Feb-2016 IMMUNIZ ADMNIN, 1 VAC, SNGL/COMBO (22283) Ordered:14-Feb-2015 FLU VAC * QUADRIVALENT , 3-64 YRS INTRAMUSC (07804) Completed:14-Feb-2015 ADMINISTRATION OF PNEUMOCOCCAL VACCINE (G0009) Ordered:28-Dec-2014 PNEUMOCOCCAL VACCINE ([id number]) Completed:28-Dec-2014 CHEST X-RAY, TWO VIEWS ([id number]) Completed: CHEST X-RAY, TWO VIEWS (74560) Completed: CHEST X-RAY, TWO VIEWS ([id number]) Completed:29-Jul-2014 X-RAY EXAM OF HIP, COMPLETE (2 View) ([id number]) Completed:29-Jul-2014 Flu Vaccine Completed:28-Jan-2017 Flu Vaccine Completed:19-Feb-2016 Hernia Repair Completed:1982 Comments: Right. Pneumovax Completed:28-Dec-2014 Tonsillectomy Comments: 4th grade Immunization Name Dates Details Influenza, preserv. free, enhanced immunogncty, IM Lot #: [id number] Administered on:28-Jan-2017 Comments: Site: Deltoid (Left) Influenza, preservative free (3 years and up) Lot #: [id number] Administered on:14-Feb-2015 Comments: Site: Deltoid (Left) Influenza, preservative free (3 years and up) Lot #: [id number] Administered on:19-Feb-2016 Comments: Site: Deltoid (Left) Pneumococcal (2 years and up) Lot #: [id number] Administered on:28-Dec-2014 Comments: Site: Deltoid (Left) Family [...] Active Vital Signs Date Test Result Details 24-Jun-2017 15:27 Temperature 98.3 f Comments: Method: Temporal Pulse [...] kg/m2 Body Surface Area Calculated 1.88 m2 05-Jun-2017 11:44 Temperature 98.6 f Pulse 82 /min Comments: Pattern: Regular BP Systolic 148 mm[Hg] Comments: Patient Position: Sitting; Cuff Location: Left Arm; Cuff Size: Standard BP Diastolic 108 mm[Hg] Comments: Patient Position: Sitting; Cuff Location: Left Arm; Cuff Size: Standard Weight 175 lb Height 66 in Body Mass Index Calculated 28.25 kg/m2 Body Surface Area Calculated 1.89 m2 19-Jul-2015 15:20 Temperature 98.7 f Comments: Method: [...] 1.83 m2 Results Date Description Value Details 05-Jun-2017 19:57 ANNUAL DEPRESSION SCREENING (G0444) Score: 0 [Over the past 2 weeks, how often have you been bothered by any of the following problems?] Little interest or pleasure in doing things: Not at all; Feeling down, depressed, or hopeless: Not at all Final 19:57 RISK ASSESSMENT FOR FALL INDICATED (3288F) Score: (Reference Range: 0- 24=Low Risk, 25-44=Medium Risk, 45+=High Risk): 0; History of falling: immediate or within 3 months?: No (0); Is there a Secondary Diagnosis?: No (0); Any use of ambulatory aids?: Bed rest/nurse assist (0); Does patient have a IV/Heparin lock?: No (0); How is patient's gait/transferring?: Normal/bed rest/immobile (0); How is patient's mental status?: Oriented to own ability (0) Final 05-Jun-2017 11:26 STATFLU (12605) Comments: Items in this order include: StatFlu STATFLU Negative for Influz A & B (Normal) Range: Negative 09:13 Draw Charge[i] Draw Drawn (Normal) 09:13 CMP ([id number]) Comments: Items in this order include: CBC, [...] 135-145 09:13 CBC FEMALE- ORDER THIS ONE! ([id number]) manual diff Not Indicated (Normal) mpv 9.30 [...] 4.50-10.50 Advance Directives Encounters Office Visit - Bronchitis, acute (466.0 | J20.9) Encounter Reason: Cough - Symptoms include cough, dyspnea and wheezing, while symptoms do not include fever, runny nose, stuffy nose, sore throat, pleuritic chest pain, chest pain or vomiting. The cough is described as tight. Cough onset was gradual 3 week(s) ago. Note for "Cough": Pt has had cough for past 3 weeks. Productive @ times.[facility] 24-Jun-2017 to 14-Jul-2017 Office Visit - Bronchitis, acute (466.0 | [...] do not include mouth breathing or noisy breathing.[facility] On 05-Jun-2017 11:40 to 20:07 Lab entry only - Cough (786.2 | R05) [facility] On 04-Jun-2017 16:17 to 16:18 Medication Entry - Atopic dermatitis (691.8 | L20.9) [facility] On 18-Feb-2017 10:25 to 10:28 Nurse Visit - Encounter for administration of vaccine (V05.9 | Z23) [facility] On 28-Jan-2017 14:24 to 15:09 Nurse Visit - Encounter for administration of vaccine (V05.9 | Z23) [facility] On 19-Feb-2016 15:48 to 17:03 Office Visit - Sleep disturbance (780.50 | G47.9) Encounter Reason: Sleeping difficulty - Note for "Sleeping difficulty": Pt states can get to sleep but is having difficulty staying alseep. Wakes 2-3am regularly, and then has much difficulty getting back to sleep. This has been occuring for some time but [facility] to 14-Aug-2015 Nurse Visit - Flu vaccine need (V04.81 | Z23) [facility] On 14-Feb-2015 17:17 to 17:20 Nurse Visit - Need for pneumococcal vaccination (V03.82 | Z23) [facility] On 28-Dec-2014 16:36 to 16:56 Office Visit - Pneumonia (486 | J18.9) Encounter Reason: Transition into care - The patient is transitioning into care from a hospital and a summary of care was reviewed . Note for "Transition into care": F/u for hospitolization for pnewmonia. Pt c/o right ear discomfort and states Flovent is causing some hoarseness. Also c/o fatigue.[facility] to 13-Nov-2014 Admission Note - Fever (780.60 | R50.9), Cough (786.2 | R05), Pneumonia (486 | J18.9) Encounter Reason: Fever - Note for "Fever": Chills, fever, chest congestion, cough, sore throat, and a little SOB since Sat.. Nauseated this [facility] to 13-Nov-2014 Office Visit - [...] be active but not so much anymore. [facility] 29-Jul-2014 to 23-Aug-2014 Office Visit - Atopic dermatitis (691.8 | L20.9), Hip pain, chronic (719.45 | M25.559) Encounter Reason: Rash - Symptoms include skin bumps, crusting, draining, skin redness, skin scaling and skin swelling. The skin rash is located on the left leg, left foot, right leg and right foot. Onset was 3 week(s) ago.[facility] to Insurance * Shlomo Santoyo ; holli guarantor * Medicare [employer] * [employer]
--- OUTSIDE RECORDS SUMMARY | 2018-09-18 17:14 | XMS REPORT | Continuity of Care Document ---
Author Author [facility] Organization [facility] Address [address] [place] [address] Phone Care Team Providers Care Receiving Clerk Name Role Phone Jeannie Tomas DO PP [...] Dates Details IMMUNIZ ADMNIN, 1 VAC, SNGL/COMBO ([id number]) Ordered:14-Feb-2015 FLU VAC * QUADRIVALENT , 3-64 YRS INTRAMUSC (36635) Completed:14-Feb-2015 ADMINISTRATION OF PNEUMOCOCCAL VACCINE (G0009) Ordered:28-Dec-2014 PNEUMOCOCCAL VACCINE (02490) Completed:28-Dec-2014 CHEST X-RAY, TWO VIEWS ([id number]) Completed: CHEST X-RAY, TWO VIEWS (79423) Completed: CHEST X-RAY, TWO VIEWS ([id number]) Completed:29-Jul-2014 X-RAY EXAM OF HIP, COMPLETE (2 View) ([id number]) Completed:29-Jul-2014 Flu Vaccine Comments: Date: 02/14/2015. Hernia Repair Completed:1981 Comments: Right. Pneumovax Completed:28-Dec-2014 Tonsillectomy Comments: 4th grade Immunization Name Dates Details Influenza, preservative free (3 years and up) Lot #: [id number] Administered on:14-Feb-2015 Comments: Site: Deltoid (Left) Pneumococcal (2 years and up) Lot #: [id number] Administered on:28-Dec-2014 Comments: Site: Deltoid (Left) Family [...] 09:13 Draw Charge[i] Draw Drawn (Normal) 09:13 [facility] ([id number]) Comments: Items in this order include: CBC, [...] 135-145 09:13 CBC FEMALE- ORDER THIS ONE! ([id number]) manual diff Not Indicated (Normal) mpv 9.30 [...] 4.50-10.50 Advance Directives Encounters Office Visit - Sleep disturbance (780.50 | G47.9) Encounter Reason: Sleeping difficulty - Note for "Sleeping difficulty": Pt states can get to sleep but is having difficulty staying alseep. Wakes 2-3am regularly, and then has much difficulty getting back to sleep. This has been occuring for some time but [facility]2015 Nurse Visit - Flu vaccine need (V04.81 | Z23) [facility] On 14-Feb-2015 17:17 to 17:20 Nurse Visit - Need for pneumococcal vaccination (V03.82 | Z23) [facility] On 28-Dec-2014 16:36 to 16:56 [...] hoarseness. Also c/o fatigue.[facility] to 13-Nov-2014 Admission Note - [...] so much anymore. [facility] 29-Jul-2014 to 23-Aug-2014 Office Visit - Atopic dermatitis (691.8 | L20.9), Hip pain, chronic (719.45 | M25.559) Encounter Reason: Rash - Symptoms include skin bumps, crusting, draining, skin redness, skin scaling and skin swelling. The skin rash is located on the left leg, left foot, right leg and right foot. Onset was 3 week(s) ago.[facility] to Insurance * Shlomo Santoyo ; a guarantor * [facility] [employer] [facility] * [facility] * [place] [employer] IV[place]
--- OUTSIDE RECORDS SUMMARY | 2018-09-18 17:15 | XMS REPORT | Continuity of Care Document ---
Author Author [facility] [place] Organization [facility] [place] Address [address] [place] [address] Phone Care Team Providers Care Inventory Control Coordinator Name Role Phone Jeannie Tomas DO PP Jeannie Tomas DO Unavailable Gail Rios Unavailable Unavailable Jayde Olmedo [...] Dates Details IMMUNIZ ADMNIN, 1 VAC, SNGL/COMBO (83010) Ordered:19-Feb-2016 FLU VAC * QUADRIVALENT , 3-64 YRS INTRAMUSC (99219) Ordered:19-Feb-2016 IMMUNIZ ADMNIN, 1 VAC, SNGL/COMBO (14779) Ordered:14-Feb-2015 FLU VAC * QUADRIVALENT , 3-64 YRS INTRAMUSC (69837) Completed:14-Feb-2015 ADMINISTRATION OF PNEUMOCOCCAL VACCINE (G0009) Ordered:28-Dec-2014 PNEUMOCOCCAL VACCINE ([id number]) Completed:28-Dec-2014 CHEST X-RAY, TWO VIEWS (57891) Completed: CHEST X-RAY, TWO VIEWS (16144) Completed: CHEST X-RAY, TWO VIEWS ([id number]) Completed:29-Jul-2014 X-RAY EXAM OF HIP, COMPLETE (2 View) ([id number]) Completed:29-Jul-2014 Flu Vaccine Comments: Date: 02/14/2015. Hernia Repair Completed:1981 Comments: Right. Pneumovax Completed:28-Dec-2014 Tonsillectomy Comments: 4th grade Immunization Name Dates Details Influenza, preservative free (3 years and up) Lot #: [id number] Administered on:14-Feb-2015 Comments: Site: Deltoid (Left) Pneumococcal (2 years and up) Lot #: [id number] Administered on:28-Dec-2014 Comments: Site: Deltoid (Left) Family [...] 09:13 Draw Charge[i] Draw Drawn (Normal) 09:13 [facility] ([id number]) Comments: Items in this order include: CBC, [...] 135-145 09:13 CBC FEMALE- ORDER THIS ONE! ([id number]) manual diff Not Indicated (Normal) mpv 9.30 [...] Range: 4.50-10.50 Advance Directives Encounters Review - Encounter for administration of vaccine (V05.9 | Z23) [facility] [place] On 19-Feb-2016 15:48 Office Visit - Sleep disturbance (780.50 | G47.9) Encounter Reason: Sleeping difficulty - Note for "Sleeping difficulty": Pt states can get to sleep but is having difficulty staying alseep. Wakes 2-3am regularly, and then has much difficulty getting back to sleep. This has been occuring for some time but is [facility] [place] 19-Jul-2015 to 14-Aug-2015 Nurse Visit - Flu vaccine need (V04.81 | Z23) [facility] [place] On 14-Feb-2015 17:17 to 17:20 Nurse Visit - Need for pneumococcal vaccination (V03.82 | Z23) [facility] [place] On 28-Dec-2014 16:36 to 16:56 Office Visit - Pneumonia (486 | J18.9) Encounter Reason: Transition into care - The patient is transitioning into care from a hospital and a summary of care was reviewed . Note for "Transition into care": F/u for hospitolization for pnewmonia. Pt c/o right ear discomfort and states Flovent is causing some hoarseness. Also c/o fatigue.[facility] [place] to 13-Nov-2014 Admission Note - Fever (780.60 | R50.9), Cough (786.2 | R05), Pneumonia (486 | J18.9) Encounter Reason: Fever - Note for "Fever": Chills, fever, chest congestion, cough, sore throat, and a little SOB since Sat.. Nauseated this [facility] to 13-Nov-2014 Office Visit - Hip pain, [...] active but not so much anymore. [facility] [place] 29-Jul-2014 to 23-Aug-2014 Office Visit - Atopic dermatitis (691.8 | L20.9), Hip pain, chronic (719.45 | M25.559) Encounter Reason: Rash - Symptoms include skin bumps, crusting, draining, skin redness, skin scaling and skin swelling. The skin rash is located on the left leg, left foot, right leg and right foot. Onset was 3 week(s) ago.[facility] [place] to Insurance * Shlomo Santoyo ; a guarantor * [employer] [facility] * [employer] * [place] E-[employer] IVL
--- OUTSIDE RECORDS SUMMARY | 2018-09-18 17:15 | XMS REPORT | Continuity of Care Document ---
Author Author [facility] [place] Organization [facility] [place] Address [address] [place] [address] Phone Care Team Providers Care Quality Assurance Nurse Name Role Phone Jeannie Tomas DO PP [...] Inhalation Aerosol Solution 2 puffs Aerosol Soln q 4 hours prn cough or wheeze for 0 days * Quantity: 1 {Inhaler} Refills: 1 Ordered:05-Jun-2017 Jeannie Tomas DO* Start 05-Jun-2017 Active VITAMIN B-1, 250MG (Oral Tablet) 1BID [...] Procedure Dates Details CHEST X-RAY, TWO VIEWS (75157) Completed:05-Jun-2017 INTRAMUSCULAR INJECTION OF VACCINE (75858) Ordered:28-Jan-2017 INTRAMUSCULAR ADMINISTRATION OF HIGH DOSE SPLIT VIRUS PRESERVATIVE FREE INFLUENZA VACCINE ([id number]) Completed:28-Jan-2017 IMMUNIZ ADMNIN, 1 VAC, SNGL/COMBO (39840) Ordered:19-Feb-2016 FLU VAC * QUADRIVALENT , 3-64 YRS INTRAMUSC ([id number]) Completed:19-Feb-2016 IMMUNIZ ADMNIN, 1 VAC, SNGL/COMBO (29685) Ordered:14-Feb-2015 FLU VAC * QUADRIVALENT , 3-64 YRS INTRAMUSC (62678) Completed:14-Feb-2015 ADMINISTRATION OF PNEUMOCOCCAL VACCINE (G0009) Ordered:28-Dec-2014 PNEUMOCOCCAL VACCINE (86135) Completed:28-Dec-2014 CHEST X-RAY, TWO VIEWS ([id number]) Completed: CHEST X-RAY, TWO VIEWS (15161) Completed: CHEST X-RAY, TWO VIEWS ([id number]) Completed:29-Jul-2014 X-RAY EXAM OF HIP, COMPLETE (2 View) ([id number]) Completed:29-Jul-2014 Flu Vaccine Completed:28-Jan-2017 Flu Vaccine Completed:19-Feb-2016 Hernia Repair Completed:1981 Comments: Right. Pneumovax Completed:28-Dec-2014 Tonsillectomy Comments: 4th grade Immunization Name Dates Details Influenza, preserv. free, enhanced immunogncty, IM Lot #: [id number] Administered on:28-Jan-2017 Comments: Site: Deltoid (Left) Influenza, preservative free (3 years and up) Lot #: [id number] Administered on:14-Feb-2015 Comments: Site: Deltoid (Left) Influenza, preservative free (3 years and up) Lot #: [id number] Administered on:19-Feb-2016 Comments: Site: Deltoid (Left) Pneumococcal (2 years and up) Lot #: [id number] Administered on:28-Dec-2014 Comments: Site: Deltoid (Left) Family [...] Final 19:57 RISK ASSESSMENT FOR FALL INDICATED (3868F) Score: (Reference Range: 0- 24=Low Risk, 25-44=Medium [...] own ability (0) Final 05-Jun-2017 11:26 STATFLU (86134) Comments: Items in this order include: StatFlu STATFLU Negative for Influz A & B (Normal) Range: Negative 09:13 Draw Charge[i] Draw Drawn (Normal) 09:13 CMP ([id number]) Comments: Items in this order include: CBC, [...] 135-145 09:13 CBC FEMALE- ORDER THIS ONE! (00494) manual diff Not Indicated (Normal) mpv 9.30 [...] (Abnormal) Range: 4.50-10.50 Advance Directives Encounters Review Encounter Reason: Cough - Symptoms include cough, dyspnea and wheezing, while symptoms do not include fever, runny nose, stuffy nose, sore throat, pleuritic chest pain, chest pain or vomiting. The cough is described as tight. Cough onset was gradual 3 week(s) ago. Note for "Cough": Pt has had cough for past 3 weeks. Productive @ times.[facility] [place] On 24-Jun-2017 15:24 Office Visit - Bronchitis, acute (466.0 | [...] do not include mouth breathing or noisy breathing.[facility] [place] On 05-Jun-2017 11:40 to 20:07 Lab entry only - Cough (786.2 | R05) [facility] [place] On 04-Jun-2017 16:17 to 16:18 Medication Entry - Atopic dermatitis (691.8 | L20.9) [facility] On 18-Feb-2017 10:25 to 10:28 Nurse Visit - Encounter for administration of vaccine (V05.9 | Z23) [facility] [place] On 28-Jan-2017 14:24 to 15:09 Nurse Visit - Encounter for administration of vaccine (V05.9 | Z23) [facility] [place] On 19-Feb-2016 15:48 to 17:03 Office Visit - Sleep disturbance (780.50 | G47.9) Encounter Reason: Sleeping difficulty - Note for "Sleeping difficulty": Pt states can get to sleep but is having difficulty staying alseep. Wakes 2-3am regularly, and then has much difficulty getting back to sleep. This has been occuring for some time but [facility] [place] [facility]-2015 to 14-Aug-2015 Nurse Visit - Flu vaccine need (V04.81 | Z23) [facility] [place] On 14-Feb-2015 17:17 to 17:20 Nurse Visit - Need for pneumococcal vaccination (V03.82 | Z23) [facility] [place] On 28-Dec-2014 16:36 to 16:56 Office Visit - Pneumonia (486 | J18.9) Encounter Reason: Transition into care - The patient is transitioning into care from a hospital and a summary of care was reviewed . Note for "Transition into care": F/u for hospitolization for pnewmonia. Pt c/o right ear discomfort and states Flovent is causing some hoarseness. Also c/o fatigue.[facility] [place] to 13-Nov-2014 Admission Note - Fever (780.60 [...] be active but not so much anymore. [facility] 29-Jul-2014 to 23-Aug-2014 Office Visit - Atopic dermatitis (691.8 | L20.9), Hip pain, chronic (719.45 | M25.559) Encounter Reason: Rash - Symptoms include skin bumps, crusting, draining, skin redness, skin scaling and skin swelling. The skin rash is located on the left leg, left foot, right leg and right foot. Onset was 3 week(s) ago.[facility] to Insurance * Shlomo Santoyo ; holli guarantor * Medicare WPS * [facility]
--- OUTSIDE RECORDS SUMMARY | 2018-09-18 17:16 | XMS REPORT | Continuity of Care Document ---
Author Author [facility] Organization [facility] Address [address] [place] [address] Phone Care Team Providers Care Woods Overseer Name Role Phone Jeannie Tomas DO PP Jeannie Tomas DO Unavailable Kraen Littlejohn Unavailable Unavailable Gail Rios Unavailable Unavailable [...] 1000UNIT (Oral Capsule) daily (1000 UNIT) Active Zithromax Z-Jefferson 250 MG Oral Tablet 2 d1, 1 d 2-5 Tablet po qd for 0 days * Quantity: 1 {Package} Refills: 0 Ordered:05-Jun-2017 Jeannie Tomas DO* Start 05-Jun-2017 Active ALBUTEROL SULFATE, 0.63MG/3ML (Inhalation Nebulization Solution) [...] Procedure Dates Details CHEST X-RAY, TWO VIEWS (18625) Completed:05-Jun-2017 INTRAMUSCULAR INJECTION OF VACCINE (34064) Ordered:28-Jan-2017 INTRAMUSCULAR ADMINISTRATION OF HIGH DOSE SPLIT VIRUS PRESERVATIVE FREE INFLUENZA VACCINE (01834) Completed:28-Jan-2017 IMMUNIZ ADMNIN, 1 VAC, SNGL/COMBO (60029) Ordered:19-Feb-2016 FLU VAC * QUADRIVALENT , 3-64 YRS INTRAMUSC (67959) Completed:19-Feb-2016 IMMUNIZ ADMNIN, 1 VAC, SNGL/COMBO (83550) Ordered:14-Feb-2015 FLU VAC * QUADRIVALENT , 3-64 YRS INTRAMUSC (87952) Completed:14-Feb-2015 ADMINISTRATION OF PNEUMOCOCCAL VACCINE (G0009) Ordered:28-Dec-2014 PNEUMOCOCCAL VACCINE (54381) Completed:28-Dec-2014 CHEST X-RAY, TWO VIEWS (21757) Completed: CHEST X-RAY, TWO VIEWS (89177) Completed: CHEST X-RAY, TWO VIEWS (69164) Completed:29-Jul-2014 X-RAY EXAM OF HIP, COMPLETE (2 View) (30665) Completed:29-Jul-2014 Flu Vaccine Completed:19-Feb-2016 Flu Vaccine Completed:28-Jan-2017 Hernia Repair Completed:1981 Comments: Right. Pneumovax Completed:28-Dec-2014 Tonsillectomy Comments: 4th grade Immunization Name Dates Details Influenza, preserv. free, enhanced immunogncty, IM Lot #: [id number] Administered on:28-Jan-2017 Comments: Site: Deltoid (Left) Influenza, preservative free (3 years and up) Lot #: [id number] Administered on:14-Feb-2015 Comments: Site: Deltoid (Left) Influenza, preservative free (3 years and up) Lot #: [id number] Administered on:19-Feb-2016 Comments: Site: Deltoid (Left) Pneumococcal (2 years and up) Lot #: [id number] Administered on:28-Dec-2014 Comments: Site: Deltoid (Left) Family [...] Active Vital Signs Date Test Result Details 05-Jun-2017 11:44 Temperature 98.6 f Pulse 82 [...] own ability (0) Final 05-Jun-2017 11:26 STATFLU (66155) Comments: Items in this order include: StatFlu STATFLU Negative for Influz A & B (Normal) Range: Negative 09:13 Draw Charge[i] Draw Drawn (Normal) 09:13 CMP (59591) Comments: Items in this order include: CBC, [...] 135-145 09:13 CBC FEMALE- ORDER THIS ONE! (84996) manual diff Not Indicated (Normal) mpv 9.30 [...] do not include mouth breathing or noisy breathing.[facility] On 05-Jun-2017 11:40 to 20:07 Lab entry only - Cough (786.2 | R05) [facility] On 04-Jun-2017 16:17 to 16:18 Medication Entry - Atopic dermatitis (691.8 | L20.9) [facility] On 18-Feb-2017 10:25 to 10:28 Nurse Visit - Encounter for administration of vaccine (V05.9 | Z23) [facility] On 28-Jan-2017 14:24 to 15:09 Nurse Visit - Encounter for administration of vaccine (V05.9 | Z23) [facility] On 19-Feb-2016 15:48 to 17:03 Office Visit - Sleep disturbance (780.50 | G47.9) Encounter Reason: Sleeping difficulty - Note for "Sleeping difficulty": Pt states can get to sleep but is having difficulty staying alseep. Wakes 2-3am regularly, and then has much difficulty getting back to sleep. This has been occuring for some time but [facility] to 14-Aug-2015 Nurse Visit - Flu vaccine need (V04.81 | Z23) [facility] On 14-Feb-2015 17:17 to 17:20 Nurse Visit - Need for pneumococcal vaccination (V03.82 | Z23) [facility] On 28-Dec-2014 16:36 to 16:56 Office Visit - Pneumonia (486 | J18.9) Encounter Reason: Transition into care - The patient is transitioning into care from a hospital and a summary of care was reviewed . Note for "Transition into care": F/u for hospitolization for pnewmonia. Pt c/o right ear discomfort and states Flovent is causing some hoarseness. Also c/o fatigue.[facility] to 13-Nov-2014 Admission Note - Fever (780.60 | R50.9), Cough (786.2 | R05), Pneumonia (486 | J18.9) Encounter Reason: Fever - Note for "Fever": Chills, fever, chest congestion, cough, sore throat, and a little SOB since Sat.. Nauseated this [facility] to 13-Nov-2014 Office Visit - Hip [...] be active but not so much anymore. [facility] 29-Jul-2014 to 23-Aug-2014 Office Visit - Atopic dermatitis (691.8 | L20.9), Hip pain, chronic (719.45 | M25.559) Encounter Reason: Rash - Symptoms include skin bumps, crusting, draining, skin redness, skin scaling and skin swelling. The skin rash is located on the left leg, left foot, right leg and right foot. Onset was 3 week(s) ago.[facility] to Insurance * Shlomo Santoyo ; holli guarantor * Medicare WPS * [facility] [employer]
--- OUTSIDE RECORDS SUMMARY | 2018-09-18 17:16 | XMS REPORT | Continuity of Care Document ---
Author Author [facility] Organization [facility] Address [address] [place] [address] Phone Care Team Providers Care Wage Analyst Name Role Phone Jeannie Tomas DO PP Jeannie Tomas DO Unavailable Gail Rios Unavailable Unavailable Unavailable Problems Name Dates Details Atopic dermatitis (691.8, L20.9) Status: Active Hip pain, chronic (719.45, M25.559) Status: Active Hypoglycemia Status: Active Persistent cough (786.2, R05) Status: Active Pneumonia Comments: 1988 Status: Active Medications Name Dates Details ASPIRIN CHILD, 81MG (Oral Tablet Chewable) - Historical Medication 1 daily (81 MG) Active FISH OIL, 435MG (Oral Capsule) - Historical [...] Historical Medication 1 BID (595 MG) Active PREDNISONE, 20MG (Oral Tablet) 2 x 3d, 1 x 4d Tablet po qd with food for 0 days * Quantity: 10 {Tablet} Refills: 0 Ordered:29-Jul-2014 Jeannie Tomas DO* Start 29-Jul-2014 Active VITAMIN B-1, 250MG (Oral Tablet) - Historical Medication 1BID (250 MG) Active VITAMIN C ER, 1000-100MG (Oral Tablet Extended Release) - Historical Medication 2 daily (1000-100 MG) Active VITAMIN E NATURAL, 1000UNIT (Oral Capsule) - Historical Medication 1 daily (1000 UNIT) Active BENADRYL ALLERGY, 25MG (Oral Capsule) - Historical Medication 1 as needed (25 MG) Inactive Comments: Medication taken as needed. Allergies and Adverse Reactions Name Dates Details Penicillins (Allergy) Status: Active Comments: Headache and very sleepy Poison Judy (Allergy) Status: Active Past Medical History No Significant Medical History. Procedures Procedure Dates Details CHEST X-RAY, TWO VIEWS (65003) Completed:29-Jul-2014 X-RAY EXAM OF HIP, COMPLETE (2 View) (26775) Completed:29-Jul-2014 Hernia Repair Completed:1981 Comments: Right. Tonsillectomy [...] Active Vital Signs Date Test Result Details 29-Jul-2014 16:26 Temperature 98.7 f Comments: Method: [...] Results Advance Directives Encounters Office Visit - Hip pain, chronic (719.45 [...] be active but not so much anymore. [facility] 29-Jul-2014 to 23-Aug-2014 Office Visit - Atopic dermatitis (691.8 | L20.9), Hip pain, chronic (719.45 | M25.559) Encounter Reason: Rash - Symptoms include skin bumps, crusting, draining, skin redness, skin scaling and skin swelling. The skin rash is located on the left leg, left foot, right leg and right foot. Onset was 3 week(s) ago.[facility] to Insurance * Shlomo Santoyo ; a guarantor * [facility] * [facility] [employer]
--- OUTSIDE RECORDS SUMMARY | 2018-09-18 17:16 | XMS REPORT | Continuity of Care Document ---
Author Author [facility] Organization [facility] Address [address] [place] [address] Phone Care Team Providers Care Fringe Maker Name Role Phone Jeannie Tomas DO PP [...] Dates Details IMMUNIZ ADMNIN, 1 VAC, SNGL/COMBO (70197) Ordered:14-Feb-2015 FLU VAC * QUADRIVALENT , 3-64 YRS INTRAMUSC (05742) Completed:14-Feb-2015 ADMINISTRATION OF PNEUMOCOCCAL VACCINE (G0009) Ordered:28-Dec-2014 PNEUMOCOCCAL VACCINE (45615) Completed:28-Dec-2014 CHEST X-RAY, TWO VIEWS (74734) Completed: CHEST X-RAY, TWO VIEWS (18249) Completed: CHEST X-RAY, TWO VIEWS (69842) Completed:29-Jul-2014 X-RAY EXAM OF HIP, COMPLETE (2 View) (02051) Completed:29-Jul-2014 Flu Vaccine Comments: Date: 02/14/2015. Hernia Repair Completed:1981 Comments: Right. Pneumovax Completed:28-Dec-2014 Tonsillectomy Comments: 4th grade Immunization Name Dates Details Influenza, preservative free (3 years and up) Lot #: [id number] Administered on:14-Feb-2015 Comments: Site: Deltoid (Left) Pneumococcal (2 years and up) Lot #: [id number] Administered on:28-Dec-2014 Comments: Site: Deltoid (Left) Family [...] 09:13 Draw Charge[i] Draw Drawn (Normal) 09:13 [facility] (73194) Comments: Items in this order include: CBC, [...] 135-145 09:13 CBC FEMALE- ORDER THIS ONE! (02083) manual diff Not Indicated (Normal) mpv 9.30 [...] 4.50-10.50 Advance Directives Encounters Nurse Visit - Flu vaccine need (V04.81 | Z23) [facility] On 14-Feb-2015 17:17 to 17:20 Nurse Visit - Need for pneumococcal vaccination (V03.82 | Z23) [facility] On 28-Dec-2014 16:36 to 16:56 Office Visit - Pneumonia (486 | J18.9) Encounter Reason: Transition into care - The patient is transitioning into care from a hospital and a summary of care was reviewed . Note for "Transition into care": F/u for hospitolization for pnewmonia. Pt c/o right ear discomfort and states Flovent is causing some hoarseness. Also c/o fatigue.[facility] to 13-Nov-2014 Admission Note - Fever (780.60 | R50.9), Cough (786.2 | R05), Pneumonia (486 | J18.9) Encounter Reason: Fever - Note for "Fever": Chills, fever, chest congestion, cough, sore throat, and a little SOB since Sat.. Nauseated this [facility] to 13-Nov-2014 Office Visit - Hip [...] be active but not so much anymore. [facility] 29-Jul-2014 to 23-Aug-2014 Office Visit - Atopic dermatitis (691.8 | L20.9), Hip pain, chronic (719.45 | M25.559) Encounter Reason: Rash - Symptoms include skin bumps, crusting, draining, skin redness, skin scaling and skin swelling. The skin rash is located on the left leg, left foot, right leg and right foot. Onset was 3 week(s) ago.[facility] to Insurance * Shlomo Santoyo ; a guarantor * [facility] * [facility] * [employer]
--- OUTSIDE RECORDS SUMMARY | 2018-09-18 17:16 | XMS REPORT | Continuity of Care Document ---
Author Author [facility] Organization [facility] Address [address] [place] [address] Phone Care Team Providers Care Document Preparation Specialist Name Role Phone Jeannie Tomas DO PP [...] Results No Known Results Advance Directives Encounters Review Encounter Reason: Hip pain - Note for "Hip pain": Chronic intermittent right hip pain. Onset was several years ago. @ times upon arising is difficult to put weight on it. Twisting and turning movements aggravates the pain. Pain does not radiate down his [facility] On 29-Jul-2014 16:25 Office Visit - Atopic dermatitis (691.8 | L20.9), Hip pain, chronic (719.45 | M25.559) Encounter Reason: Rash - Symptoms include skin bumps, crusting, draining, skin redness, skin scaling and skin swelling. The skin rash is located on the left leg, left foot, right leg and right foot. Onset was 3 week(s) ago.[facility] to Insurance * hSlomo Santoyo ; holli guarantor * [facility] * [facility]
--- OUTSIDE RECORDS SUMMARY | 2018-09-18 17:17 | XMS REPORT | Continuity of Care Document ---
Author Organization Unknown Address Unknown Allergies Active Description Code Type Severity Reaction Onset Reported/Identified Relationship to Patient Clinical Status Yes penicillin ##NOMEN##,AL1,ceStruct,allergy,1237,274 Drug N/A N/A Yes PENICILLINS N/A N/A Yes Penicillins Drug Allergy N/A N/A 09/22/2012 Medications Medication Packaging Start Date Stop Date Route Dosage Sig promethazine Tab 12/19/2017 <RXR.1.2>Oral</RXR.1.2><RXR.1.2>Oral</RXR.1.2> 12.5 mg Once promethazine Vial 12/19/2017 12/19/2017 <RXR.1.2>IV Push</RXR.1.2><RXR.1.2>IV Push</RXR.1.2> 25 mg Once Problems Date Dx Coded Attending Type Code Diagnosis Diagnosed By 09/22/2012 NARINDER BELLA 796.2 ELEV BL PRES W/O HYPERTN 09/22/2012 LIDA CASTRO, GIORGI Coulter 401.9 HYPERTENSION NOS 09/22/2012 LIDA CASTRO, GIORGI Coulter 784.0 HEADACHE 09/22/2012 LIDA CASTRO, GIORGI Coulter 787.02 NAUSEA ALONE 07/08/2018 F K64.9 Unspecified hemorrhoids 07/08/2018 F Z12.11 Encounter for screening for malignant neoplasm of colon 09/12/2018 F Z12.11 Encounter for screening for malignant neoplasm of colon Procedures Code [place] [address] ROUTINE VENIPUNCTURE NARINDER BELLA 09/22/2012 27376 COMPREHEN METABOLIC PANEL NARINDER BELLA 09/22/2012 35408 ASSAY OF CK (CPK) NARINDER BELLA 09/22/2012 12254 CREATINE, MB FRACTION NARINDER BELLA 09/22/2012 58999 LACTATE (LD) (LDH) ENZYME NARINDER BELLA 09/22/2012 69887 ASSAY OF MYOGLOBIN GALINDO ALTHEA NARINDER Butt 09/22/2012 27151 NATRIURETIC PEPTIDE GALINDONARINDER CLEMONS 09/22/2012 42028 ASSAY OF TROPONIN, QUANT GALINDOREZA OH NARINDER Butt 09/22/2012 94381 COMPLETE CBC W/AUTO DIFF WBC GALINDO ALTHEA NARINDER Daquan 09/22/2012 75024 C-REACTIVE PROTEIN, HS GALINDOREZA OH NARINDER A 09/22/2012 62390 ELECTROCARDIOGRAM, TRACING GALINDOREZA OH NARINDER A 09/22/2012 10027 HYDRATE IV INFUSION, ADD-ON GALINDONARINDER CLEMONS 09/22/2012 37958 EMERGENCY DEPT VISIT NARINDER BELLA 09/22/2012 97812 EMERGENCY DEPT VISIT NARINDER BELLA 09/22/2012 79778 NEW PT-DETAILED 07/08/2018 Results Test Result Range COMPLETE BLOOD COUNT - 09/22/12 04:17 RBC 4.78 10^6u 3.8-5.8 [place] # 0.73 10^3u 0.24-0.82 [place] % 9.2 % 4.7-12.5 MPV 9.5 FL 6.5-12.0 RDW 13.4 % 10.0-15.0 Neut # 5.57 10^3u 1.56-6.13 Neut % 70.0 % 34.0-71.1 WBC 7.95 10^3u 3.5-10.9 MCV 88.5 FL 80-98 Platelet 215 10^3u 150-390 Baso # 0.03 10^3u 0.01-0.08 MCHC 35.0 G/DL 31.5-35.1 Baso % 0.4 % 0.1-1.2 Eos # 0.19 10^3u 0.04-0.54 Eos % 2.4 % 0.7-7.0 Lymph % 18.0 % 19.3-51.7 HCT 42.3 % 35-50 HGB 14.8 G/DL 11.0-16.6 Lymph # 1.43 10^3u 1.18-3.74 MCH 31.0 PG 26.0-33.5 Cardiac Panel - 09/22/12 04:17 Troponin I 0.019 NG/ML 0.019-0.029 CKMB 2.31 NG/ML 0.189-3.010 Myoglobin 74.1 NG/ML 10.2-80.4 Pro-BNP - 09/22/12 04:17 Pro-BNP 41 PG/ML 15-125 hsCRP - 09/22/12 04:17 hsCRP 0.338 MG/ML 0.05-4.16 CMP - EGFR - 09/22/12 04:17 Potassium 4.5 MMOLL 3.6-5.0 Sodium 139 MMOLL 137-145 T. Protein 6.3 G/DL 6.3-8.3 Albumin 3.7 G/DL 3.5-5.0 AST 24 U/L 15-46 BUN 22 MG/DL 9-20 Calcium 8.6 MG/DL 8.4-10.2 T Bili .5 MG/DL 0.2-1.3 ALT 28 U/L 7-56 Chloride 105 MMOLL 98-107 CO2 24 MMOLL 22-30 Creatinine .9 MG/DL 0.8-1.5 EGFR 86 MLMIN > 60 Glucose 104 MG/DL 75-110 Alk Phos 75 U/L 38-126 CPK - 09/22/12 04:17 CPK 122 U/L 55-170 LDH - 09/22/12 04:17 LDH 425 MMOLL 313-618 BMP Standard - 12/19/17 15:35 Sodium SerPl-sCnc 140 mmol/L 136-145 Potassium SerPl-sCnc 3.90 mmol/L 3.50-5.10 Chloride SerPl-sCnc 102 mmol/L 98-107 CO2 SerPl-sCnc 25.0 mmol/L 23.0-31.0 BUN SerPl-mCnc 17.0 mg/dL 5.7-25.7 Creat SerPl-mCnc 1.10 mg/dL 0.72-1.25 Glucose SerPl-mCnc 126 mg/dL 70-110 Calcium SerPl-mCnc 9.4 mg/dL 9.0-10.6 Anion Gap SerPl-sCnc 16.9 10.0-20.0 BUN/Creat SerPl-mRto 15.45 9.00-30.00 Breakpoint NRG OSMOLALITY:OSMOL:PT:SER/PLAS:QN: 282 mOsm/L 266-301 GLOMERULAR FILTRATION RATE/1.73 SQ M.PREDICTED.NON BLACK:ARVRAT:PT:SER/PLAS:QN:CREATININE- BASED FORMULA (MDRD) 67.0 mL/min/1.73m2 >=60.0 Auto Diff Standard - 12/19/17 15:35 Neutrophils NFr Bld Auto 82 % 55-75 Lymphocytes NFr Bld Auto 12 % 20-40 Monocytes NFr Bld Auto 6 % 0-7 Eosinophil NFr Bld Auto 0 % 0-7 Basophils NFr Bld Auto 0.10 % 0.00-1.07 Neutrophils # Bld Auto 14.2 x10 2.5-7.8 Lymphocytes # Bld Auto 2.1 x10 0.9-4.7 Monocytes # Bld Auto 1.0 x10 0.0-0.7 Eosinophil # Bld Auto 0.0 x10 0.0-0.3 Basophils # Bld Auto 0.0 x10 0.0-0.1 Breakpoint NRG CBC w/Diff Standard - 12/19/17 15:35 WBC # Bld Auto 17.4 x10 4.5-10.5 RBC # Bld Auto 5.03 x10 4.60-6.20 Hgb Bld-mCnc 15.4 gm/dL 13.0-19.0 Hct VFr Bld Auto 46.1 % 39.0-55.0 MCV RBC Auto 91.7 fL 80.0-97.0 MCH RBC Qn Auto 30.6 pg 27.0-31.0 MCHC RBC Auto-mCnc 33.4 gm/dL 31.0-36.0 RDW RBC Auto-Rto 14.7 % 10.0-20.0 Platelet # Bld Auto 279 x10 150-450 MPV Bld Auto 9.8 fL 8.0-11.0 Breakpoint NRG ERYTHROCYTE DISTRIBUTION WIDTH:ENTVOL:PT:RBC:QN:AUTOMATED COUNT 48.1 fL 37.0-54.0 Troponin-I - 12/19/17 15:37 TROPONIN T.CARDIAC:MCNC:PT:SER/PLAS:QN: <0.03 ng/mL 0.00-0.60 EKG (34) - 12/19/17 15:45 EKG (Lab) See Scanned Report NRG UA with Culture, If Indicated Standard - 12/19/17 18:50 Color Ur Auto Yellow Yellow Appearance Ur Clear Clear Glucose Ur Ql Strip.auto Negative NRG Bilirub Ur Ql Strip Negative NRG Ketones Ur Ql Strip Trace Negative Sp Gr Ur Strip.auto 1.020 1.005-1.030 RBC Ur Ql Auto Negative Negative pH Ur Strip.auto 7.0 NRG Prot Ur Strip-mCnc Negative Negative Urobilinogen Ur Strip.auto-mCnc 0.2 0.2 Nitrite Ur Ql Strip Negative Negative Leukocyte esterase Ur Ql Strip Negative Negative Urine Source Clean Catch NRG Micro? Yes NRG Breakpoint NRG Urinalysis Microscopic (34) - 12/19/17 18:50 WBC #/area UrnS HPF 0-3 /HPF 0-3 Bacteria #/area UrnS HPF Trace /HPF Trace Culture? No NRG Auto Diff Standard - 12/20/17 07:20 Neutrophils NFr Bld Auto 74 % 55-75 Lymphocytes NFr Bld Auto 16 % 20-40 Monocytes NFr Bld Auto 8 % 0-7 Eosinophil NFr Bld Auto 1 % 0-7 Basophils NFr Bld Auto 0.20 % 0.00-1.07 Neutrophils # Bld Auto 8.3 x10 2.5-7.8 Lymphocytes # Bld Auto 1.8 x10 0.9-4.7 Monocytes # Bld Auto 1.0 x10 0.0-0.7 Eosinophil # Bld Auto 0.1 x10 0.0-0.3 Basophils # Bld Auto 0.0 x10 0.0-0.1 Breakpoint NRG CBC w/Diff Standard - 12/20/17 07:20 WBC # Bld Auto 11.2 x10 4.5-10.5 RBC # Bld Auto 4.50 x10 4.60-6.20 Hgb Bld-mCnc 13.7 gm/dL 13.0-19.0 Hct VFr Bld Auto 41.2 % 39.0-55.0 MCV RBC Auto 91.6 fL 80.0-97.0 MCH RBC Qn Auto 30.4 pg 27.0-31.0 MCHC RBC Auto-mCnc 33.3 gm/dL 31.0-36.0 RDW RBC Auto-Rto 14.8 % 10.0-20.0 Platelet # Bld Auto 241 x10 150-450 MPV Bld Auto 9.9 fL 8.0-11.0 Breakpoint NRG ERYTHROCYTE DISTRIBUTION WIDTH:ENTVOL:PT:RBC:QN:AUTOMATED COUNT 48.2 fL 37.0-54.0 Encounters ACCT No. Visit Date/Time Discharge Status Pt. Type Provider Facility Loc./Unit Complaint [id number] 09/22/2012 03:56:00 09/22/2012 05:40:00 DIS Emergency LIDA CASTRO, GIORGI [facility] ER [id number] 09/22/2012 03:56:00 09/22/2012 03:56:00 DIS [facility] 07/08/2018 08:57:00 Document Registration [id number] 12/19/2017 15:16:00 12/19/2017 23:59:59 [facility] Emergency Jeannie Tomas [facility] ER FALL HEAD PAIN [id number] 07/20/2018 11:37:09 Document Registration [id number] 07/08/2018 16:04:56 Document Registration [id number] 12/19/2017 09:35:55 Document Registration
--- OUTSIDE RECORDS SUMMARY | 2018-09-18 17:17 | XMS REPORT | Continuity of Care Document ---
Author Author [facility] Organization [facility] Address [address] [place] [address] Phone Care Team Providers Care Commercial Electrician Name Role Phone Jeannie Tomas DO PP Jeannie Tomas DO Unavailable Unavailable History of Present Illness No History Of Present Illness Information Available Problems Name Dates Details Atopic dermatitis (691.8, L20.9) Status: Active Hip pain, chronic (719.45, M25.559) Status: Active Medications Name Dates Details ASPIRIN CHILD, 81MG (Oral Tablet Chewable) - Historical Medication 1 daily Active BENADRYL ALLERGY, 25MG (Oral Capsule) - Historical Medication 1 as needed Active Comments: Medication taken as needed. FISH OIL, 435MG (Oral Capsule) - Historical Medication 1 daily Active MOMETASONE FUROATE, 0.1% (External Ointment) Apply to rash Ointment bid for 0 days Quantity: 45 Ordered : Jeannie Tomas DO* Started ActiveMOMETASONE FUROATE, 0.1% (External Ointment) Apply to rash Ointment bid for 0 days * Quantity: 45 Refills: 3 Ordered : Jeannie Tomas DO* Started ActiveMULTIVITAMIN (PO Tab) - Historical Medication 1 daily ActivePOTASSIUM GLUCONATE, 595MG (Oral Tablet) - Historical Medication 1 BID ActiveVITAMIN B-1, 250MG (Oral Tablet) - Historical Medication 1BID ActiveVITAMIN C ER, 1000-100MG (Oral Tablet Extended Release) - Historical Medication 2 daily ActiveVITAMIN E NATURAL, 1000UNIT (Oral Capsule) - Historical Medication 1 daily Active Allergies and Adverse Reactions Name Dates Details Penicillins Status: Active Comments: Headache and very sleepy Poison Judy Status: Active Past Medical History Name Dates Details Hypoglycemia Status: Active Pneumonia Comments: 1987 Status: Active Procedures Procedure Dates Details Hernia Repair Comments: [Insert Date into Details]. Right. 1981 Tonsillectomy Comments: 4th grade Family History Name Dates Details Alzheimer's disease Comments: Father. Status: Active Arteriosclerotic Cardiovascular Disease Comments: Father. First Degree Relatives. Has Artificial Heart Valve. still living Status: Active Hypertension Comments: Mother. First Degree Relatives. Status: Active Social History Name Dates Details No Drug Use Non Drinker/No Alcohol Use Tobacco use: Never smoker. Vital Signs Date Test Result Details 15:11 [...] 26.31 kg/m2 Body Surface Area Calculated 1.83 Results Date Description Value Details 14-Apr-2013 00:00 No Result Information Available Advance Directives No Advance Directives available. Encounters Office Visit - Atopic dermatitis (691.8 | L20.9), Hip pain, chronic (719.45 | M25.559) Encounter Reason: Rash - Symptoms include skin bumps, crusting, draining, skin redness, skin scaling and skin swelling. The skin rash is located on the left leg, left foot, right leg and right foot. Onset was 3 week(s) ago.[facility] On 15:11"
--- OUTSIDE RECORDS SUMMARY | 2018-09-18 17:17 | XMS REPORT | Continuity of Care Document ---
Author Author [facility] Organization [facility] Address [address] [place] [address] Phone Care Team Providers Care Oncology Research Rn Name Role Phone Jeannie Tomas DO PP [...] Dates Details IMMUNIZ ADMNIN, 1 VAC, SNGL/COMBO (79548) Ordered:19-Feb-2016 FLU VAC * QUADRIVALENT , 3-64 YRS INTRAMUSC (11774) Completed:19-Feb-2016 IMMUNIZ ADMNIN, 1 VAC, SNGL/COMBO (61603) Ordered:14-Feb-2015 FLU VAC * QUADRIVALENT , 3-64 YRS INTRAMUSC (18242) Completed:14-Feb-2015 ADMINISTRATION OF PNEUMOCOCCAL VACCINE (G0009) Ordered:28-Dec-2014 PNEUMOCOCCAL VACCINE (40221) Completed:28-Dec-2014 CHEST X-RAY, TWO VIEWS (44136) Completed: CHEST X-RAY, TWO VIEWS (32974) Completed: CHEST X-RAY, TWO VIEWS (86546) Completed:29-Jul-2014 X-RAY EXAM OF HIP, COMPLETE (2 View) (51302) Completed:29-Jul-2014 Flu Vaccine Completed:19-Feb-2016 Hernia Repair Completed:1981 Comments: Right. Pneumovax Completed:28-Dec-2014 Tonsillectomy Comments: 4th grade Immunization Name Dates Details Influenza, preservative free (3 years and up) Lot #: [id number] Administered on:14-Feb-2015 Comments: Site: Deltoid (Left) Influenza, preservative free (3 years and up) Lot #: [id number] Administered on:19-Feb-2016 Comments: Site: Deltoid (Left) Pneumococcal (2 years and up) Lot #: [id number] Administered on:28-Dec-2014 Comments: Site: Deltoid (Left) Family [...] 09:13 Draw Charge[i] Draw Drawn (Normal) 09:13 [facility] (62534) Comments: Items in this order include: CBC, [...] 135-145 09:13 CBC FEMALE- ORDER THIS ONE! (36123) manual diff Not Indicated (Normal) mpv 9.30 [...] 4.50-10.50 Advance Directives Encounters Nurse Visit - Encounter for administration of vaccine (V05.9 | Z23) [facility] On 19-Feb-2016 15:48 to 17:03 Office Visit - Sleep disturbance (780.50 | G47.9) Encounter Reason: Sleeping difficulty - Note for "Sleeping difficulty": Pt states can get to sleep but is having difficulty staying alseep. Wakes 2-3am regularly, and then has much difficulty getting back to sleep. This has been occuring for some time but [facility] to 14-Aug-2015 Nurse Visit - Flu vaccine need (V04.81 | Z23) [facility] On 14-Feb-2015 17:17 to 17:20 Nurse Visit - Need for pneumococcal vaccination (V03.82 | Z23) [facility] On 28-Dec-2014 16:36 to 16:56 Office Visit - Pneumonia (486 | J18.9) Encounter Reason: Transition into care - The patient is transitioning into care from a hospital and a summary of care was reviewed . Note for "Transition into care": F/u for hospitolization for pnewmonia. Pt c/o right ear discomfort and states Flovent is causing some hoarseness. Also c/o fatigue.[facility] to 13-Nov-2014 Admission Note - Fever (780.60 | R50.9), Cough (786.2 | R05), Pneumonia (486 | J18.9) Encounter Reason: Fever - Note for "Fever": Chills, fever, chest congestion, cough, sore throat, and a little SOB since Sat.. Nauseated this [facility] to 13-Nov-2014 Office Visit - Hip [...] but not so much anymore. [facility] 29-Jul-2014 to 23-Aug-2014 Office Visit - Atopic dermatitis (691.8 | L20.9), Hip pain, chronic (719.45 | M25.559) Encounter Reason: Rash - Symptoms include skin bumps, crusting, draining, skin redness, skin scaling and skin swelling. The skin rash is located on the left leg, left foot, right leg and right foot. Onset was 3 week(s) ago.[facility] to Insurance * Shlomo Santoyo ; holil guarantor * [employer] * [employer] software[facility]ly [facility] * [place] [employer] [place]
== END 2018-09-18 14:15 | disposition home or self-care (01) ==
LOC: ER FS 13:20
DX: S51.851A Open bite of right forearm, initial encounter (principal); Z88.0 Allergy status to penicillin; Z23 Encounter for immunization; Z88.4 Allergy status to anesthetic agent; W54.0XXA Bitten by dog, initial encounter
CPT/HCPCS: 90471; 90715; 99284

== ENCOUNTER 2021-08-10 18:39 | Emergency (ER) | payer MEDICARE, OTHER ==
[~2021-08-10] VITALS: Ht 167 cm; Wt 68.0 kg
[~2021-08-10 18:39] MED LIST: DOXY100T2 PO
[2021-08-10 18:59] LABS: BASOPHILS % (AUTO) 0 % (0-10); EOSINOPHILS # (AUTO) 0.2 10^3/uL (0.0-0.3); EOSINOPHILS % (AUTO) 2 % (0-10); HEMATOCRIT 42 % (40-54); HEMOGLOBIN 14.3 g/dL (13.3-17.7); LYMPHOCYTES # (AUTO) 0.7 10^3/uL (1.0-4.0); LYMPHOCYTES % (AUTO) 6 % (12-44); MEAN CORPUSCULAR HEMOGLOBIN 31 pg (25-34); MEAN CORPUSCULAR HGB CONC 34 g/dL (32-36); MEAN CORPUSCULAR VOLUME 89 fL (80-99); MEAN PLATELET VOLUME 9.7 fL (9.0-12.2); MONOCYTES # (AUTO) 0.8 10^3/uL (0.0-1.0); MONOCYTES % (AUTO) 7 % (0-12); NEUTROPHILS # (AUTO) 9.7 10^3/uL (1.8-7.8); NEUTROPHILS % (AUTO) 85 % (42-75); PLATELET COUNT 246 10^3/uL (130-400); WHITE BLOOD COUNT 11.5 10^3/uL (4.3-11.0)
--- NOTE | 2021-08-10 18:59 | Diagnostic Imaging Report ---
INDICATION: Near syncopal episode. TECHNIQUE: Single view chest 6:55 PM. CORRELATION STUDY: None FINDINGS: The heart size, mediastinal configuration and pulmonary vascularity are within normal limits. Calcified mediastinal lymph nodes. The lungs are clear with no consolidating infiltrate. There is no significant effusion or pneumothorax. IMPRESSION: 1. Negative appearing single view chest. Dictated by: Dictated on workstation # [id number]
[2021-08-10] MEDS ORDERED: NS IV 500 ML 500 ML IV ONE ×2 (19:00→21:30)
[2021-08-10 19:09] VITALS: BP 123/72
[2021-08-10 19:21] LABS: ALBUMIN 4.4 GM/DL (3.2-4.5); BILIRUBIN,TOTAL 0.6 MG/DL (0.1-1.0); CREATININE SERUM 0.93 MG/DL (0.60-1.30); MAGNESIUM 2.2 MG/DL (1.6-2.4); POTASSIUM 3.3 MMOL/L (3.6-5.0); TOTAL PROTEIN 6.9 GM/DL (6.4-8.2)
[2021-08-10 19:32] LABS: EOSINOPHILS % (MANUAL) 3 %; LYMPHOCYTES % (MANUAL) 4 %; MONOCYTES % (MANUAL) 5 %; NEUTROPHILS % (MANUAL) 88 %
--- NOTE | 2021-08-10 19:36 | ED Syncope ---
General Chief Complaint: Dizziness/Syncope Stated Complaint: LIGHTHEADED Nursing Triage Note: pt presents via ems. reports he was eating dinner at a local resteraunt and became lightheaded and dizzy. reports becoming diaphoretic and feeling as if he would "pass out". pt denies LOC Source of Information: Patient Exam Limitations: No Limitations History of Present Illness Date Seen by Provider: Aug 10, 2021 Time Seen by Provider: 18:45 Initial Comments Here by EMS with report of feeling like he was going to pass out. He has had episodes of near syncope or syncope previously. He noted that he was started to feel bad and so laid down and that did help. EMS was called. He was sweating profusely at the time. He states usually this is associated with low blood sugar but he was actually eating his meal at the time. He may have had a little chest tightness at the time but that is not persisted and overall feels better now. He states he would probably just lay down at home if that is where he was at. Denies nausea, vomiting or diarrhea. Denies recent illness. He is vaccinated for COVID. EMS reports blood sugar 110. Timing/Prior Episodes: Remote History, Single Episode Today Symptoms Prior to Episode: Blurred Vision, Diaphoresis, Lightheadedness, Nausea, Rapid Heart Rate, Recent Head Trauma Precipitating Factors: Other (Eating dinner) Loss of Consciousness: No Loss of Consciousness Current Symptoms: Diaphoresis, Lightheadedness, Weakness Allergies and Home Medications Allergies Uncoded Allergies: ANESTHESIA (Allergy, Unknown, 09/18/18) PENICILLIN (Allergy, Unknown, 09/18/18) FEVER Patient Home Medication List Home Medication List Reviewed: Yes Doxycycline Hyclate (Doxycycline Hyclate) 100 Mg Tablet, 100 MG PO BID Prescribed by: KADI VANN on 09/18/18 9448 Review of Systems Constitutional: see HPI; No chills, No fever EENTM: No nose congestion, No throat pain Respiratory: No cough, No short of breath Cardiovascular: see HPI; No edema, No palpitations; syncope Gastrointestinal: No abdominal pain, No nausea, No vomiting Genitourinary: no symptoms reported Musculoskeletal: No back pain Skin: no symptoms reported All Other Systems Reviewed Negative Unless Noted: Yes Past Zpkraez-Hawzta-Wciitg Hx Patient Social History Tobacco Use?: No Substance use?: No Alcohol Use?: No Immunizations Up To Date Tetanus Booster (TDap): Unknown Influenza Vaccine Up-to-Date: Yes; Up-to-Date First/Initial COVID19 Vaccinat: unknown date Second COVID19 Vaccination Ranjit: unknown date Seasonal Allergies Seasonal Allergies: No Past Medical History Surgeries: Yes (HERNIA REPAIR, CARPAL TUNNEL SURGERY) Respiratory: Yes Pneumonia Cardiac: Yes Hypertension Neurological: No Genitourinary: No Gastrointestinal: No Musculoskeletal: No Endocrine: No HEENT: No Cancer: No Psychosocial: No Integumentary: Yes (HX MRSA) Blood Disorders: No Family Medical History Reviewed Nursing Family Hx No Pertinent Family Hx Physical Exam Vital Signs Vital Signs - First Documented 08/10/21 19:09 Temp 37.3 Pulse 91 Resp 18 B/P (MAP) 123/72 (89) Pulse Ox 96 O2 Delivery Room Air Capillary Refill : Height, Weight, BMI Height: 5'6.00" Weight: 165lbs. oz. 74.375027tl; 24.00 BMI Method:Stated General Appearance: No Apparent Distress, WD/WN HEENT: PERRL/EOMI, Pharynx Normal Neck: Non Tender, Supple Cardiovascular: Regular Rate, Rhythm, No Murmur Respiratory: Lungs Clear, Normal Breath Sounds Gastrointestinal: Non Tender, Soft Back: Normal Inspection, No CVA Tenderness, No Vertebral Tenderness Extremities: Normal Range of Motion, Non Tender Neurologic/Psychiatric: Alert, Oriented x3 Cranial Nerves: Normal Hearing, Normal Speech, PERRL Motor/Sensory: No Motor Deficit, No Sensory Deficit Skin: Normal Color, Damp; No Rash Progress/Results/Core Measures Results/Orders Lab Results Laboratory Tests Test 08/10/21 18:53 Range/Units White Blood Count 11.5 H 4.3-11.0 10^3/uL Red Blood Count 4.68 4.30-5.52 10^6/uL Hemoglobin 14.3 13.3-17.7 g/dL Hematocrit 42 40-54 % Mean Corpuscular Volume 89 80-99 fL Mean Corpuscular Hemoglobin 31 25-34 pg Mean Corpuscular Hemoglobin Concent 34 32-36 g/dL Red Cell Distribution Width 13.8 10.0-14.5 % Platelet Count 246 130-400 10^3/uL Mean Platelet Volume 9.7 9.0-12.2 fL Immature Granulocyte % (Auto) 0 % Neutrophils (%) (Auto) 85 H 42-75 % Lymphocytes (%) (Auto) 6 L 12-44 % Monocytes (%) (Auto) 7 0-12 % Eosinophils (%) (Auto) 2 0-10 % Basophils (%) (Auto) 0 0-10 % Neutrophils # (Auto) 9.7 H 1.8-7.8 10^3/uL Lymphocytes # (Auto) 0.7 L 1.0-4.0 10^3/uL Monocytes # (Auto) 0.8 0.0-1.0 10^3/uL Eosinophils # (Auto) 0.2 0.0-0.3 10^3/uL Basophils # (Auto) 0.0 0.0-0.1 10^3/uL Immature Granulocyte # (Auto) 0.0 0.0-0.1 10^3/uL Neutrophils % (Manual) 88 % Lymphocytes % (Manual) 4 % Monocytes % (Manual) 5 % Eosinophils % (Manual) 3 % Sodium Level 136 135-145 MMOL/L Potassium Level 3.3 L 3.6-5.0 MMOL/L Chloride Level 99 98-107 MMOL/L Carbon Dioxide Level 23 21-32 MMOL/L Anion Gap 14 5-14 MMOL/L Blood Urea Nitrogen 27 H 7-18 MG/DL Creatinine 0.93 0.60-1.30 MG/DL Estimat Glomerular Filtration Rate 88 BUN/Creatinine Ratio 29 Glucose Level 142 H 70-105 MG/DL Calcium Level 9.0 8.5-10.1 MG/DL Corrected Calcium 8.7 8.5-10.1 MG/DL Magnesium Level 2.2 1.6-2.4 MG/DL Total Bilirubin 0.6 0.1-1.0 MG/DL Aspartate Amino Transf (AST/SGOT) 22 5-34 U/L Alanine Aminotransferase (ALT/SGPT) 19 0-55 U/L Alkaline Phosphatase 62 40-136 U/L Myoglobin 54.6 10.0-92.0 NG/ML Troponin I < 0.30 <0.30 NG/ML Total Protein 6.9 6.4-8.2 GM/DL Albumin 4.4 3.2-4.5 GM/DL My Orders Orders - SHIELA ALCAZAR MD Cbc With Automated Diff (08/10/21 18:48) Magnesium (08/10/21 18:48) Chest 1 View Ap/Pa Only (08/10/21 18:48) Ekg Tracing (08/10/21 18:48) Comprehensive Metabolic Panel (08/10/21 18:48) Myoglobin Serum (08/10/21 18:48) O2 (08/10/21 18:48) Monitor-Rhythm Ecg Trace Only (08/10/21 18:48) Lipid Panel (08/11/21 06:00) Ed Iv/Invasive Line Start (08/10/21 18:48) Troponin I Fs (08/10/21 18:48) Ns Iv 500 Ml (Sodium Chloride 0.9%) (08/10/21 19:00) Manual Differential (08/10/21 18:53) Medications Given in ED Current Medications Medications Dose Ordered Sig/Bruna Route Start Time Stop Time Status Last Admin Dose Admin Sodium Chloride 500 ml @ 0 mls/hr Q0M ONCE IV 08/10/21 19:00 08/10/21 19:01 DC 08/10/21 19:06 999 MLS/HR Vital Signs/I&O 08/10/21 08/10/21 08/10/21 08/10/21 19:09 19:09 19:18 19:52 Temp 37.3 Pulse 91 91 93 Resp 18 16 18 B/P (MAP) 123/72 (89) 125/64 129/62 Pulse Ox 96 96 95 95 O2 Delivery Room Air Room Air Room Air Room Air Blood Pressure Mean: 84 Progress Progress Note : Progress Note Seen and evaluated. IV, labs, EKG and normal saline 500 mL bolus ordered. Monitor patient. 2020: Overall doing better. No significant abnormalities currently. Patient has had this before. I did discuss follow-up with cardiology. His son works for [employer] in [place] as an RN and I will give him the name of Dr. Cabral as well. Discharged home with return precautions. Patient verbalized understanding of instructions and agreement with plan. Initial ECG Impression Date: Aug 10, 2021 Initial ECG Impression Time: 18:53 Initial ECG Rate: 91 Initial ECG Rhythm: Normal Sinus Initial ECG Impression: Nonspecific Changes Initial ECG Comparisson: No Previous ECG Available Comment Sinus rhythm with normal axis. No evidence of ST elevation MS. Flat T waves inferior leads. No previous available for comparison. Interpreted by me. Diagnostic Imaging Diagonstic Imaging: Xray Plain Films/CT/US/NM/MRI: chest Comments [facility] [place], [place] NAME: KADI SCOTT [facility] REC#: [id number] PT STATUS: REG ER : 1950 PHYSICIAN: SHIELA ALCAZAR MD ADMIT DATE: 08/10/21/ER FS Draft Date of Exam:08/10/21 CHEST 1 VIEW AP/PA ONLY INDICATION: Near syncopal episode. TECHNIQUE: Single view chest 6:55 PM. CORRELATION STUDY: None FINDINGS: The heart size, mediastinal configuration and pulmonary vascularity are within normal limits. Calcified mediastinal lymph nodes. The lungs are clear with no consolidating infiltrate. There is no significant effusion or pneumothorax. IMPRESSION: 1. Negative appearing single view chest. Dictated on workstation # [id number] Dict: 08/10/[id number] Trans: 08/10/211858 DO [id number] Interpreted by: JOSE RAFAEL HUFF DO Electronically signed by: Departure Impression Primary Impression: Near syncope Disposition: 01 HOME, SELF-CARE Condition: Improved Departure-Patient Inst. Decision time for Depature: 20:21 Referrals: DILIA CABRAL MD NO,LOCAL PHYSICIAN (PCP) Primary Care Physician Patient Instructions: Near Fainting (DC), Vasovagal Response (DC) Add. Discharge Instructions: All discharge instructions reviewed with patient and/or family. Voiced understanding. Continue home medications as previously prescribed. Ensure that you are drinking an adequate amount of fluids and eat a normal diet. Follow-up with your doctor for recheck and further evaluation. You may follow-up with Dr. Cabral by calling his office and let them know that you were seen in the ED and needed follow-up or with senior tax accountant of your choosing. Return for chest pain, breathing problems, weakness, vomiting, fever or other concerns as needed. SHIELA ALCAZAR MD Aug 10, 2021 19:36
[2021-08-10] MEDS ORDERED: ONDANSETRON 4 MG/2 ML (SDV) Z0FRAN IVP ONE (21:15)
== END 2021-08-10 22:36 | disposition home or self-care (01) ==
LOC: ER FS 18:39 → EDUNIT# 18:39 → ER FS 22:36
DX: R55 Syncope and collapse (principal); R11.10 Vomiting, unspecified; R53.1 Weakness
CPT/HCPCS: 36415; 71045; 80053; 82947; 83735; 83874; 84484; 85007; 85027; 93005; 93041